=== PATIENT | female | born 1945 | race Caucasian/White ===

== ENCOUNTER 2018-05-13 14:27 | Emergency (ER) | payer MEDICARE, SELFPAY ==
[~2018-05-13 14:27] MED LIST: Sodium Chloride 0.9% 100 ML BAG ONE
[2018-05-13] MEDS ORDERED: Magnesium Sulfate 2 GM/NS 0.9% 50 ML BAG ONE (14:45)
[2018-05-13] MEDS ORDERED: Dexamethasone 10 MG/ML VIAL ONE (14:45)
--- NOTE | 2018-05-13 15:00 | RAD ---
FRONTAL RADIOGRAPH CHEST: Date: 05-13-18 Comparison: 12-23-11 History: Dyspnea. FINDINGS: Lungs are hyperinflated with increased linear interstitial density noted bilaterally. Pulmonary granu layne noted laterally on the right. No pneumothorax, pleural fluid, lobar consolidation or alveolar ed yolie. IMPRESSION: Interstitial prominence and pulmonary hyperinflation. No lobar consolidation or alveolar edema. POS: [facility]
[2018-05-13 15:13] LABS: #Basophils 0.1 thou/uL (0.0-0.2); #Eosinphils 0.1 thou/uL (0.0-0.7); #Lymphocytes 1.3 thou/uL (1.20-3.40); #Monocytes 0.8 thou/uL (0.11-0.59); #Neutrophils 6.6 thou/uL (1.40-6.50); %Basophils 1.2 % (0.0-1.0); %Eosinophils 0.9 % (0.0-10.0); %Lymphocytes 14.2 % (21.0-51.0); %Monocytes 8.9 % (0.0-10.0); %Neutrophils 74.9 % (42.0-75.0); Hemoglobin 12.8 g/dL (12.0-16.0); Mean Corpuscular HGB CONC 31.1 g/dL (32.0-36.0); Mean Corpuscular Hemoglobin 25.1 pg (27.0-31.0); Mean Corpuscular Volume 80.6 fL (78.0-98.0); Mean Platelet Volume 9.9 fL (7.4-10.4); Platelet Count 318 thou/uL (130-400); RBC Distribution Width 12.8 % (11.5-14.5); Red Blood Cell (RBC) Count 5.12 mill/uL (4.20-5.40); White Blood Cell (WBC) Count 8.8 thou/uL (4.8-10.8)
[2018-05-13 15:17] LABS: Anion Gap 17 mmol/L (10-20); BUN (Urea Nitrogen) 11 mg/dL (9.8-20.1); Calc. Creatinine Clearance 0 mL/min (70-130); Calcium 10.3 mg/dL (7.8-10.44); Carbon Dioxide 28 mmol/L (23-31); Chloride 103 mmol/L (98-107); Estimated GFR-MDRD 72; Glucose 119 mg/dL (83-110); Potassium 3.6 mmol/L (3.5-5.1); Sodium 144 mmol/L (136-145)
== END 2018-05-13 16:17 | disposition home or self-care (01) ==
LOC: MADERS 14:27
DX: J44.1 Chronic obstructive pulmonary disease with (acute) exacerbation (principal); Z87.891 Personal history of nicotine dependence
CPT/HCPCS: 71045; 80048; 83880; 85025; 94760; 96365; 96375; J1100; J3475; J7050; J7620

== ENCOUNTER 2020-05-19 20:13 | Emergency (ER) | payer MEDICARE ==
[~2020-05-19 20:13] MED LIST changes: +Sodium Chloride 0.9% 1,000 ML BAG ONE; -Sodium Chloride 0.9% 100 ML BAG ONE
--- NOTE | 2020-05-19 20:57 | RAD ---
Chest AP view INDICATION: Cough COMPARISON: May 13, 2018 FINDINGS: Lungs: The lungs remain hyperexpanded but without focal infiltrative opacity. There are calcified gr anuloma within the right lung which are stable. Cardiac silhouette: The cardiomediastinal silhouette appears within normal limits. Pulmonary vasculature: Normal Pleural spaces: No pleural effusion or pneumothorax is demonstrated. Upper abdomen: No abnormality seen. Osseous structures: No acute osseous abnormality. Additional findings: None. IMPRESSION: No acute cardiopulmonary abnormality.
[2020-05-19 21:13] LABS: Mean Corpuscular Hemoglobin 25.6 pg (27.0-31.0); Mean Corpuscular Volume 85.3 fL (78.0-98.0); Mean Platelet Volume 9.5 fL (7.4-10.4); Platelet Count 350 thou/uL (130-400); RBC Distribution Width 12.6 % (11.5-14.5); Red Blood Cell (RBC) Count 4.68 mill/uL (4.20-5.40); White Blood Cell (WBC) Count 13.3 thou/uL (4.8-10.8)
[2020-05-19] MEDS ORDERED: Thiamine HCl 200 MG/2 ML VIAL ONE (21:21)
[2020-05-19 21:26] LABS: ALT (SGPT) 51 U/L (8-55); AST (SGOT) 56 U/L (5-34); Albumin 3.9 g/dL (3.4-4.8); Alkaline Phosphatase 80 U/L (40-110); Anion Gap 24 mmol/L (10-20); BUN (Urea Nitrogen) 32 mg/dL (9.8-20.1); Bilirubin, Total 0.3 mg/dL (0.2-1.2); Calc. Creatinine Clearance 0 mL/min (70-130); Calcium 10.3 mg/dL (7.8-10.44); Carbon Dioxide 19 mmol/L (23-31); Chloride 106 mmol/L (98-107); Estimated GFR-MDRD 58; Globulin 2.5 g/dL (2.4-3.5); Glucose 118 mg/dL (83-110); Magnesium 2.2 mg/dL (1.6-2.6); Potassium 4.5 mmol/L (3.5-5.1); Protein, Total 6.4 g/dL (6.0-8.3); Sodium 144 mmol/L (136-145)
[2020-05-19 21:29] LABS: #Basophils 0.1 thou/uL (0.0-0.2); #Eosinphils 0.2 thou/uL (0.0-0.7); #Lymphocytes 0.6 thou/uL (1.20-3.40); #Monocytes 1.1 thou/uL (0.11-0.59); #Neutrophils 11.3 thou/uL (1.40-6.50); %Basophils 1.1 % (0.0-1.0); %Eosinophils 1.2 % (0.0-10.0); %Lymphocytes 4.2 % (21.0-51.0); %Monocytes 8.4 % (0.0-10.0); %Neutrophils 85.1 % (42.0-75.0); Hypochromia SLIGHT = 6-15 cells (100X) (0-5/hpf); MDiff Complete? YES; Platelet Morphology Comment Appears Adequate; Poikilocytosis SLIGHT = 6-15 cells (100X) (0-5/hpf)
== END 2020-05-19 22:12 | disposition left against medical advice (07) ==
LOC: MADERS 20:13
DX: I95.9 Hypotension, unspecified (principal); L89.102 Pressure ulcer of unspecified part of back, stage 2; I10 Essential (primary) hypertension; J44.9 Chronic obstructive pulmonary disease, unspecified; Z79.899 Other long term (current) drug therapy; Z87.891 Personal history of nicotine dependence
CPT/HCPCS: 71045; 80053; 83735; 83880; 84484; 85025; 93005; 96361; 96374; J3411; J7050

== ENCOUNTER 2020-05-23 15:18 | Inpatient (IN) | payer MEDICARE ==
[2020-05-23] MEDS ORDERED: Ondansetron ODT 4 MG TAB PO PRN (18:17)
[2020-05-23] MEDS: Cephalexin 500 MG CAP PO SCH (20:38)
[2020-05-23] MEDS: hydrALAZINE 25 MG TAB PO SCH (20:39)
[2020-05-23] MEDS: Mirtazapine 15 MG TAB PO SCH (20:40)
[2020-05-23] MEDS: Ventolin HFA Inhaler 60 PUFF INHALER INH PRN (22:15)
[2020-05-24 05:42] LABS: #Basophils 0.2 thou/uL (0.0-0.2); #Eosinphils 0.2 thou/uL (0.0-0.7); #Monocytes 0.8 thou/uL (0.11-0.59); #Neutrophils 4.7 thou/uL (1.40-6.50); %Basophils 2.5 % (0.0-1.0); %Eosinophils 2.9 % (0.0-10.0); %Lymphocytes 14.6 % (21.0-51.0); %Monocytes 12.1 % (0.0-10.0); %Neutrophils 67.9 % (42.0-75.0); Mean Corpuscular HGB CONC 29.7 g/dL (32.0-36.0); Mean Corpuscular Hemoglobin 25.1 pg (27.0-31.0); Mean Corpuscular Volume 84.7 fL (78.0-98.0); Mean Platelet Volume 9.2 fL (7.4-10.4); Platelet Count 324 thou/uL (130-400); RBC Distribution Width 12.2 % (11.5-14.5); Red Blood Cell (RBC) Count 4.37 mill/uL (4.20-5.40); White Blood Cell (WBC) Count 6.9 thou/uL (4.8-10.8)
[2020-05-24 05:58] LABS: ALT (SGPT) 30 U/L (8-55); AST (SGOT) 24 U/L (5-34); Alkaline Phosphatase 68 U/L (40-110); Anion Gap 15 mmol/L (10-20); BUN (Urea Nitrogen) 5 mg/dL (9.8-20.1); Bilirubin, Total 0.3 mg/dL (0.2-1.2); Calc. Creatinine Clearance 59 mL/min (70-130); Calcium 9.3 mg/dL (7.8-10.44); Carbon Dioxide 34 mmol/L (23-31); Chloride 100 mmol/L (98-107); Estimated GFR-MDRD Greater than 90; Globulin 2.3 g/dL (2.4-3.5); Glucose 91 mg/dL (83-110); Potassium 3.2 mmol/L (3.5-5.1); Protein, Total 5.3 g/dL (6.0-8.3); Sodium 146 mmol/L (136-145)
--- NOTE | 2020-05-24 07:25 | HP ---
Admitted to [facility] on 05/23/2020. CHIEF COMPLAINT: Weakness and not eating. HISTORY OF PRESENT ILLNESS: The patient is a 75-year-old white female, who has a history of COPD, for which she is on 2 L by nasal cannula. She also has a history of hypertension. She lives alone and had been independent of all her ADLs. The patient though had been growing increasingly weak and had also been eating less and less according to the patient, she had lost a lot of weight. The patient does not know how much weight she has lost, but she said she just essentially quit eating because she had no appetite. She grew increasingly weak and unable to walk and basically became bed-confined. The family referred her to the emergency room because of increased weakness where she was no longer getting up out of bed, loss of appetite, increased fatigue, and also she had developed a redness over the sacrum. The patient was admitted to [facility] from 05/20 to 05/23 with large area of redness to the sacrum with a small central ulceration. She was thought to have a cellulitis and initially was treated with Rocephin and vancomycin. Her blood cultures were negative. The redness seemed to diminish and improved and the antibiotics were stopped. She was started on mirtazapine to try to help stimulate her appetite and said she was eating a little better. She was improved, but was still left very weak and malnourished. She was sent to [facility] for continued treatment of the wound on the sacrum, for PT and OT and also an effort to try to help continue to improve her nutritional status. The patient was seen in her room soon after admission and she said that she had just gotten weak where she could not get up, around or take care of herself. She said she has lost a lot of weight because she just did not have any appetite. Right now, she says she is also eating a little better. Patient's primary care physician had been Dr. Eason, but she has not seen her in some time. PAST MEDICAL HISTORY: Hospitalized at [facility] from 05/20 to for malnutrition, increased weakness such that she was bed confined and unable to take care of herself and stage I and II ulceration over the sacrum with surrounding cellulitis, COPD, hypertension. The patient is a 4, para 4. PRESENT MEDICATIONS: Amlodipine 10 mg daily, DuoNeb by nebulizer every 4 hours as needed, Lovenox 40 mg subcu daily, Zofran ODT 4 mg every 6 hours as needed, mirtazapine 7.5 mg at bedtime, guaifenesin DM one tab every 12 hours as needed, hydralazine 100 mg b.i.d. ALLERGIES: NO KNOWN ALLERGIES. REVIEW OF SYSTEMS: CONSTITUTIONAL: The patient does not think she has had any fever. The patient said she has lost a lot of weight, but does not know how much. VISUAL: Patient says she has no trouble with her vision. EARS, NOSE, AND THROAT: No complaints. PULMONARY: Patient said her breathing is doing fine. She thinks she is at her baseline. She uses nebulizers which helps with her breathing. CARDIOVASCULAR: No chest pain. GASTROINTESTINAL: The patient has had no nausea, no vomiting, no change in her bowel habits. The patient said she though has not had an appetite, but recently it has gotten a little better since her hospital stay. GENITOURINARY: The patient said she is having no burning. Said she usually has good control of her urine. NEUROLOGIC: The patient said that she does not have any problem with headache. She has had generalized weakness, has been nonfocal. DERMATOME: The patient says she has had a little sore on her bottom. HABITS: Alcohol, none. Tobacco, the patient used to smoke, but has been off cigarettes for some years. SOCIAL HISTORY: The patient lives alone. She does have family that assist her when needed and recently had a woman hired to assist her, but in spite of this, her condition had gone down necessitating the hospitalization. PHYSICAL EXAMINATION: GENERAL: Shows a very pleasant 75-year-old white female, who looks much older than her stated age. The patient is alert and talkative and answers questions appropriately. She appears cachectic. VITAL SIGNS: Her weight is 89 pounds. Her temperature is 98.3, pulse 116, respirations 18, O2 saturation 95% on 4 L, blood pressure 108/61. Her height is 5 feet 3 inches. SKIN: Dry and scaly, but she is not in any acute distress. HEENT: Head, normocephalic and atraumatic. Eyes, pupils are equal, round, and reactive. Sclerae nonicteric. Ears, TMs are clear. Nose, normal. Mouth and throat, the patient is edentulous except for a front mandibular incisor. NECK: Carotids are equal and strong. No bruits. Thyroid not enlarged. LUNGS: The patient has poor breath sounds, did not hear any wheeze or rhonchi. HEART: Has a rapid regular rhythm. ABDOMEN: Scaphoid with no organomegaly. No areas of tenderness. MUSCULOSKELETAL: The sacral area has a sacral Mepilex on that was removed. There is some bright redness in the sacral region and a central area of stage II decubitus that is less than 1 cm. EXTREMITIES: No edema. NEUROLOGIC: The patient is alert, oriented to place and person, situation. She has generalized weakness that is nonfocal. IMPRESSION: 1. Severe generalized weakness. a. Progressive to where she was essentially bed confined and unable to take care of herself. 2. Weight loss. a. Secondary to anorexia, etiology not known. b. A little improved since starting on the mirtazapine. 3. Chronic obstructive pulmonary disease. a. Complicated by chronic hypoxic respiratory failure requiring continuous supplemental O2. 4. Stage II decubitus over the sacrum. 5. Recent cellulitis of the sacral area that is improved, but not resolved. 6. Hypertension. 7. Edentulous. 8. Hypophosphatemia, for which she has received phosphorus supplementation. 9. Hospitalized at [facility] from 05/20 to 05/23/20 for weight loss with malnutrition, weakness such that she was unable to take care of herself and stage II sacral decubitus with cellulitis. PLAN: While in the hospital at [place], she did undergo a COVID-19 nasal swab which showed that the COVID was not detected. She is doing better. She still is red in the sacral area. For this, we will continue her on antibiotic orally and we will also use clotrimazole cream in the event there is any yeast associated with this and we will continue the Mepilex sacral dressing. PT and OT will work with the patient in effort to try to increase her general strength and functional capabilities. We will continue the mirtazapine in an effort to improve her nutritional status. Continue the supplemental O2. Continue dietary supplements and the soft diet with ground meats. We will reduce her Lovenox to 30 mg. [facility] ID: [id number] [facility]
[2020-05-24] MEDS: hydrALAZINE 25 MG TAB PO SCH ×2 (08:34→20:02)
[2020-05-24] MEDS: Amlodipine 5 MG TAB PO SCH (08:35)
[2020-05-24] MEDS: Enoxaparin Sodium 30 MG/0.3 ML SYRINGE SC SCH (08:36)
[2020-05-24] MEDS: Cephalexin 500 MG CAP PO SCH ×2 (08:36→20:02)
[2020-05-24] MEDS: Clotrimazole 1% Cream 15 GM TUBE TOP SCH (09:07)
[2020-05-24] MEDS: Potassium Chloride 10 MEQ TAB PO SCH ×2 (09:07→16:31)
--- NOTE | 2020-05-24 10:28 | PRG ---
DATE OF SERVICE: 05/24/2020 SUBJECTIVE: The patient said she did pretty good last night. She feels good this morning. She had asked if she could have a fan, she usually sleeps with one at home. OBJECTIVE: GENERAL: The patient is sitting up in bed, is talkative, appears comfortable, in no distress. VITAL SIGNS: Show a temperature 98.4, pulse 84, blood pressure 136/64, O2 saturation 93% on 4 L. LUNGS: Poor breath sounds which are chronic with her. Could not hear any wheeze, rhonchi. No rales. HEART: Regular rate. LABORATORY DATA: Her lab shows an H and H of 11 and 37.0, white cell count 6900 with 68% segs, 15% lymphocytes and a platelet count of 324. Sodium 146, potassium 3.2, BUN 5, creatinine 0.5, albumin 3.0. ASSESSMENT: 1. Severe generalized weakness. a. Progressed to where she was essentially bed confined and unable to walk or take care of herself. b. Improved, physical therapy beginning to work with her as of 05/24/2020. 2. Weight loss. a. Secondary to anorexia, etiology not known. b. Improved as of 05/24. 3. Chronic obstructive pulmonary disease. a. Complicated by chronic hypoxic respiratory failure requiring continuous supplemental O2. 4. Stage II decubitus over the sacrum. 5. Recent cellulitis of the sacral area that has improved but not yet resolved. 6. Hypertension. 7. Edentulous. 8. Hypophosphatemia for which she has received phosphorus supplementation prior to admission. 9. Hospitalized at [facility] from 05/20/2020 to 05/23/2020 for weight loss with malnutrition, weakness such that she was unable to take care of herself, has stage II decubitus of the sacrum with cellulitis. PLAN: We will continue present care. Continue present wound care. We will place the patient on supplemental potassium, and PT and OT will work with her. Job ID: [id number] [facility]
[2020-05-24] MEDS: Guaifenesin DM 100-10/5 ML UDCUP PO PRN (19:59)
[2020-05-24] MEDS: Mirtazapine 15 MG TAB PO SCH (20:02)
[2020-05-25] MEDS: Amlodipine 5 MG TAB PO SCH (07:55)
[2020-05-25] MEDS: Cephalexin 500 MG CAP PO SCH ×2 (07:56→21:45)
[2020-05-25] MEDS: hydrALAZINE 25 MG TAB PO SCH ×2 (07:56→21:45)
[2020-05-25] MEDS: Potassium Chloride 10 MEQ TAB PO SCH ×2 (07:57→16:40)
[2020-05-25] MEDS: Enoxaparin Sodium 30 MG/0.3 ML SYRINGE SC SCH (07:57)
[2020-05-25] MEDS: Clotrimazole 1% Cream 15 GM TUBE TOP SCH (08:52)
--- NOTE | 2020-05-25 12:49 | PRG ---
DATE OF SERVICE: 05/25/2020 SUBJECTIVE: The patient said she had a good night. She got a fan in her room. She is used to using this at home and this has helped her. She is working with Physical Therapy. She is set up in a chair and she is able to take a couple of steps in her room with therapy. OBJECTIVE: GENERAL: The patient is lying in her bed. She looks very comfortable, in no distress. VITAL SIGNS: Her temperature is 97.7, pulse 97, respirations 20, O2 saturation 100% on 4 L, and blood pressure 137/76. LUNGS: Clear. HEART: Regular rate. MUSCULOSKELETAL: Sacral area looks better. The wound is clean. The area of redness is just pink now and much smaller. ASSESSMENT: 1. Severe generalized weakness. a. Progressed to where she was essentially bed confined and unable to walk or take care of herself. b. Improved. The patient is now able to sit up in a chair and has taken 2 steps with physical therapy as of 05/25. 2. Weight loss. a. Secondary to anorexia, etiology not known. b. Improved as of 05/25. 3. Chronic obstructive pulmonary disease. a. Complicated by chronic hypoxic respiratory failure, requiring continuous supplemental O2. 4. Stage II decubitus over the sacrum, improved. 5. Cellulitis of the sacral region that is improving as of 05/25. 6. Hypertension. 7. Edentulous. 8. Hospitalized at [facility] from 05/20/2020 to 05/23/2020 for weight loss with malnutrition, weakness such that she was unable to take care of herself and stage II decubitus of the sacrum with cellulitis. PLAN: Overall, the patient is doing better. We will continue her present care. Continue PT and OT, and continue wound care. Job ID: [id number] [facility]
[2020-05-25] MEDS: Mirtazapine 15 MG TAB PO SCH (21:45)
[2020-05-26 06:24] LABS: Anion Gap 14 mmol/L (10-20); BUN (Urea Nitrogen) 6 mg/dL (9.8-20.1); Calc. Creatinine Clearance 60 mL/min (70-130); Calcium 9.5 mg/dL (7.8-10.44); Carbon Dioxide 33 mmol/L (23-31); Chloride 101 mmol/L (98-107); Estimated GFR-MDRD Greater than 90; Glucose 87 mg/dL (83-110); Potassium 4.3 mmol/L (3.5-5.1); Sodium 144 mmol/L (136-145)
[2020-05-26] MEDS: Amlodipine 5 MG TAB PO SCH (09:05)
[2020-05-26] MEDS: Cephalexin 500 MG CAP PO SCH ×2 (09:05→21:28)
[2020-05-26] MEDS: Potassium Chloride 10 MEQ TAB PO SCH (09:05)
[2020-05-26] MEDS: hydrALAZINE 25 MG TAB PO SCH ×2 (09:05→21:28)
[2020-05-26] MEDS: Clotrimazole 1% Cream 15 GM TUBE TOP SCH (09:06)
[2020-05-26] MEDS: Enoxaparin Sodium 30 MG/0.3 ML SYRINGE SC SCH (09:07)
[2020-05-26] MEDS: Polyethylene Glycol 3350 17 GM Packet PO SCH (09:07)
--- NOTE | 2020-05-26 14:22 | PRG ---
DATE OF SERVICE: 05/26/2020 SUBJECTIVE: The patient says she is feeling better today. She is up sitting in her chair. She said she is breathing good. Her bottom is not hurting her. She still has a very limited capability as far as any walking. So far, she has only just taken couple steps. OBJECTIVE: GENERAL: The patient is alert, appears comfortable, is very talkative. She is in no distress. VITAL SIGNS: Her temperature is 98.4, her pulse 101, respirations 20, O2 saturation 99%, and blood pressure 129/73. LUNGS: Poor breath sounds, which are chronic. I did not hear any wheeze on her today. Breath sounds are limited. There were no rales. HEART: Mild elevation of the rate to 101. EXTREMITIES: No edema. LABORATORY DATA: Sodium 144, potassium 4.3, BUN 6, and creatinine 0.73. ASSESSMENT: 1. Severe generalized weakness. a. Progressed to where she was essentially bed confined and unable to walk or take care of herself on admission. b. Improved. The patient is now able to sit in the chair and has been able to stand, but only take a couple steps with physical therapy as of 05/26. 2. Weight loss. a. Secondary to anorexia of unknown cause. b. Improved as a 05/26. 3. Chronic obstructive pulmonary disease, severe. a. Complicated by chronic hypoxic respiratory failure, requiring continuous supplemental O2. 4. Stage II decubitus over the sacrum, improving. 5. Cellulitis of the sacral region, that is improving. 6. Hypertension. 7. Edentulous. 8. Hospitalized at [facility] from 05/20/2020 to 05/23/2020 for weight loss with malnutrition, weakness, such that, she was unable to walk or take care of herself and stage II decubitus of the sacrum with cellulitis. PLAN: The patient is better. She is eating better. We will continue to encourage her to eat. Continue the wound care. Continue PT and OT. Family is working with her on post-discharge care. The patient will not be able to stay by herself. She will require help with all her ADLs with supervised living arrangement. [facility] ID: [id number] [facility]
[2020-05-26] MEDS: Ventolin HFA Inhaler 60 PUFF INHALER INH PRN ×2 (17:15→21:31)
[2020-05-26] MEDS: Mirtazapine 15 MG TAB PO SCH (21:28)
[2020-05-27] MEDS: Ventolin HFA Inhaler 60 PUFF INHALER INH PRN ×3 (05:56→14:56)
[2020-05-27] MEDS: Enoxaparin Sodium 30 MG/0.3 ML SYRINGE SC SCH (08:27)
[2020-05-27] MEDS: Clotrimazole 1% Cream 15 GM TUBE TOP SCH (08:29)
[2020-05-27] MEDS: Amlodipine 5 MG TAB PO SCH (09:31)
[2020-05-27] MEDS: Cephalexin 500 MG CAP PO SCH ×2 (09:32→21:45)
[2020-05-27] MEDS: Bisacodyl 10 MG SUPP PR PRN (09:32)
[2020-05-27] MEDS: Polyethylene Glycol 3350 17 GM Packet PO SCH (09:32)
[2020-05-27] MEDS: hydrALAZINE 25 MG TAB PO SCH ×2 (09:32→22:16)
[2020-05-27] MEDS ORDERED: Bisacodyl 10 MG SUPP PR PRN (11:25)
[2020-05-27] MEDS ORDERED: Mineral Oil ENEMA PR SCH (11:30)
[2020-05-27] MEDS ORDERED: Fleet Enema 133 ML BOT PR SCH (11:45)
[2020-05-27] MEDS: Mirtazapine 15 MG TAB PO SCH (22:15)
[2020-05-28] MEDS: Enoxaparin Sodium 30 MG/0.3 ML SYRINGE SC SCH (08:59)
[2020-05-28] MEDS: hydrALAZINE 25 MG TAB PO SCH ×2 (08:59→21:21)
[2020-05-28] MEDS: Amlodipine 5 MG TAB PO SCH (09:00)
[2020-05-28] MEDS: Cephalexin 500 MG CAP PO SCH ×2 (09:01→21:21)
[2020-05-28] MEDS: Clotrimazole 1% Cream 15 GM TUBE TOP SCH (09:01)
[2020-05-28] MEDS: Polyethylene Glycol 3350 17 GM Packet PO SCH (09:02)
--- NOTE | 2020-05-28 15:56 | PRG ---
DATE OF SERVICE: 05/28/2020 SUBJECTIVE: The patient says she is feeling good today. Yesterday she had not had a bowel movement for several days and nurse found that she had a hard impaction. She was given Fleet Enema and then stool required a digital disimpaction removing a large amount of hard stools. Afterwards, she was given an additional enema with passage of some additional hard stools. She had been placed on MiraLAX daily for the constipation. This morning, she says she is feeling better and had no complaint. OBJECTIVE: GENERAL: The patient is alert, appears in no distress. VITAL SIGNS: Her temperature is 98.1, pulse 95, respirations 18, O2 saturation 100% on 3 L, and blood pressure 108/61. LUNGS: Have poor breath sounds chronically. Did not hear any wheeze, rhonchi, or rales, probably secondary to the very poor breath sounds. HEART: Regular rate. EXTREMITIES: No edema. Sacral wound is improving. ASSESSMENT: 1. Severe generalized weakness. a. Progressed to where she was essentially bed confined, unable to walk or take care of herself on admission. b. Improved. The patient is now able to sit in a chair and has been able to stand and take a couple of steps with PT as of 05/28. 2. Weight loss. a. Secondary to anorexia of unknown cause. b. Improving as of 05/28. 3. Chronic obstructive pulmonary disease, severe. a. Complicated by chronic hypoxic respiratory failure requiring continuous supplemental O2. 4. Stage II decubitus over the sacrum, improving. 5. Cellulitis of the sacral region, improving. 6. Hypertension. 7. Edentulous. 8. Hospitalized at [facility] from 05/20/2020 to 05/23/2020 for weight loss with malnutrition, weakness, such that she was unable to walk or take care of herself and stage II decubitus of the sacrum with cellulitis. PLAN: The patient is doing better. We will continue present care. Continue PT and OT. The patient has been placed on MiraLAX regularly for the constipation that required a disimpaction yesterday. Job ID: [id number] [facility]
[2020-05-28] MEDS: Ventolin HFA Inhaler 60 PUFF INHALER INH PRN (17:43)
[2020-05-28] MEDS: Mirtazapine 15 MG TAB PO SCH (21:22)
[2020-05-29] MEDS: Amlodipine 5 MG TAB PO SCH (08:00)
[2020-05-29] MEDS: hydrALAZINE 25 MG TAB PO SCH ×2 (08:01→20:46)
[2020-05-29] MEDS: Cephalexin 500 MG CAP PO SCH ×2 (08:01→20:46)
[2020-05-29] MEDS: Enoxaparin Sodium 30 MG/0.3 ML SYRINGE SC SCH (08:02)
[2020-05-29] MEDS: Polyethylene Glycol 3350 17 GM Packet PO SCH (08:06)
--- NOTE | 2020-05-29 09:52 | PRG ---
DATE OF SERVICE: 05/29/2020 SUBJECTIVE: The patient says she is feeling good today. Her bowels are working well. OBJECTIVE: GENERAL: The patient is lying in bed on her left side. She is alert and talkative, appears comfortable and in no distress. VITAL SIGNS: Show a temperature of 99 at midnight and this morning is pending, pulse 97, respirations 16, O2 saturation 98% on 2 L, blood pressure 144/70. LUNGS: There are fair breath sounds. No wheeze, rhonchi. No rales. HEART: Regular rate. SKIN: In the sacral area, the redness has all resolved. Stage II decubitus continues to improve. ASSESSMENT: 1. Severe generalized weakness. a. Progressed to where she was essentially bed confined, unable to walk or take care of herself on admission. b. Improved. The patient is sitting up in a chair and taking just a couple of steps with PT. 2. Weight loss. a. Secondary to anorexia of unknown cause. Improving as of 05/29. 3. Chronic obstructive pulmonary disease, severe. a. Complicated by chronic hypoxic respiratory failure requiring continuous supplemental O2. 4. Stage II decubitus over the sacrum, healing as of 05/29. 5. Cellulitis of the sacral region, resolving as of 05/29. 6. Hypertension. 7. Edentulous. 8. Hospitalized at [place] from 05/20 through 05/23/20 for weight loss, malnutrition, weakness such that she was unable to walk or take care of herself and stage II decubitus of the sacrum with cellulitis. PLAN: The patient is eating better. Continue wound care. Continue PT and OT. [facility] ID: [id number] [facility]
[2020-05-29] MEDS: Clotrimazole 1% Cream 15 GM TUBE TOP SCH (11:00)
[2020-05-29] MEDS: Ondansetron ODT 4 MG TAB PO PRN (11:57)
[2020-05-29] MEDS: Ventolin HFA Inhaler 60 PUFF INHALER INH PRN (17:30)
[2020-05-29] MEDS: Mirtazapine 15 MG TAB PO SCH (20:48)
[2020-05-30] MEDS: Ventolin HFA Inhaler 60 PUFF INHALER INH PRN ×3 (07:30→20:06)
[2020-05-30] MEDS: Amlodipine 5 MG TAB PO SCH (08:34)
[2020-05-30] MEDS: hydrALAZINE 25 MG TAB PO SCH ×2 (08:35→20:20)
[2020-05-30] MEDS: Enoxaparin Sodium 30 MG/0.3 ML SYRINGE SC SCH (08:36)
[2020-05-30] MEDS: Polyethylene Glycol 3350 17 GM Packet PO SCH (08:36)
[2020-05-30] MEDS: Clotrimazole 1% Cream 15 GM TUBE TOP SCH (08:38)
--- NOTE | 2020-05-30 11:11 | PRG ---
DATE OF SERVICE: 05/30/2020 SUBJECTIVE: The patient said that she is feeling good today. Yesterday, she was nauseated and just did not want to work with Physical Therapy. OBJECTIVE: GENERAL: The patient is sitting up in bed. She is alert, appears very comfortable, and in no distress. VITAL SIGNS: Her temperature 97.1, pulse 86, respirations 20, O2 saturation 98 % on 3 L, blood pressure 106/57. LUNGS: Clear. Breath sounds are a little better, but still overall are poor. HEART: Regular rate. EXTREMITIES: No edema. ASSESSMENT: 1. Severe generalized weakness. a. Progressed to where she was essentially bed confined, unable to walk or take care of herself on admission. b. Improved. The patient is sitting up in a chair and really has not been able to take more than a couple of steps. Yesterday, did not want to participate with PT because she felt sick. Today, she is better as of 05/30. 2. Weight loss. a. Appetite improving, eating better as of 05/30. 3. Chronic obstructive pulmonary disease, severe. a. Complicated by chronic hypoxic respiratory failure, requiring continuous supplemental O2. 4. Stage II decubitus over the sacrum that is healing as of 05/30. 5. Cellulitis of the sacral region resolving as of 05/30. PLAN: Continue present care. We will discontinue the cephalexin. Encouraged her to participate with PT and OT. The cephalexin was scheduled for 10 days, but the cellulitis is all resolving, and this may be contributing to her nausea. Job ID: [id number] [facility]
[2020-05-30] MEDS: Mirtazapine 15 MG TAB PO SCH (20:20)
[2020-05-30] MEDS: Acetaminophen 325 MG TAB PO PRN (20:24)
[2020-05-31] MEDS: Ventolin HFA Inhaler 60 PUFF INHALER INH PRN ×2 (02:36→05:27)
[2020-05-31] MEDS: Enoxaparin Sodium 30 MG/0.3 ML SYRINGE SC SCH (07:58)
[2020-05-31] MEDS: Amlodipine 5 MG TAB PO SCH (07:59)
[2020-05-31] MEDS: hydrALAZINE 25 MG TAB PO SCH ×2 (08:00→21:08)
[2020-05-31] MEDS: Polyethylene Glycol 3350 17 GM Packet PO SCH (08:01)
[2020-05-31] MEDS: Clotrimazole 1% Cream 15 GM TUBE TOP SCH (10:45)
[2020-05-31] MEDS: Mirtazapine 15 MG TAB PO SCH (21:07)
[2020-06-01] MEDS: Ventolin HFA Inhaler 60 PUFF INHALER INH PRN ×4 (01:53→18:55)
[2020-06-01] MEDS: Enoxaparin Sodium 30 MG/0.3 ML SYRINGE SC SCH (09:10)
[2020-06-01] MEDS: hydrALAZINE 25 MG TAB PO SCH ×2 (09:10→21:38)
[2020-06-01] MEDS: Amlodipine 5 MG TAB PO SCH (09:11)
[2020-06-01] MEDS: Polyethylene Glycol 3350 17 GM Packet PO SCH (09:11)
[2020-06-01] MEDS: Clotrimazole 1% Cream 15 GM TUBE TOP SCH (09:12)
[2020-06-01] MEDS: Acetaminophen 325 MG TAB PO PRN (10:46)
--- NOTE | 2020-06-01 14:58 | PRG ---
DATE OF SERVICE: 06/01/2020 SUBJECTIVE: The patient said she is feeling better. She said she did get up in a chair yesterday and she said she did work a little with Physical Therapy. The patient is requiring still help with transferring, she is not able to walk. OBJECTIVE: GENERAL: The patient is lying in bed. She looks very comfortable, in no distress. VITAL SINGS: Temperature, she is afebrile. Pulse 78, respirations are 18, O2 sats 92% on 3 L, and blood pressure 122/77. LUNGS: Fair breath sounds. No wheeze or rhonchi. HEART: Regular rate. SKIN: Bandage was changed early this morning by nursing staff and said the wound is better and almost healed. ASSESSMENT: 1. Severe generalized weakness. a. Progressed to where she was essentially bed confined, unable to walk or take care of herself on admission. b. Eating a little better, will sit up in a chair, but really is not working with Physical Therapy or able to ambulate as of 06/01. 2. Weight loss. a. Appetite improving as of 06/01. 3. Chronic obstructive pulmonary disease, severe. a. Complicated by chronic hypoxic respiratory failure requiring continuous supplemental O2 for stage II decubitus over the sacrum that is healing as of 06/01. 4. Cellulitis of the sacrum, healed as of 06/01. PLAN: Continue efforts with PT and OT. Continue to encourage her to eat. General Surgery Physician Assistant is working with her. Anticipate that she probably will require usp placement. Job ID: [id number] [facility]
[2020-06-01] MEDS: Mirtazapine 15 MG TAB PO SCH (21:39)
[2020-06-02] MEDS: Ventolin HFA Inhaler 60 PUFF INHALER INH PRN ×2 (08:17→15:48)
[2020-06-02] MEDS: Amlodipine 5 MG TAB PO SCH (08:19)
[2020-06-02] MEDS: Enoxaparin Sodium 30 MG/0.3 ML SYRINGE SC SCH (08:19)
[2020-06-02] MEDS: Polyethylene Glycol 3350 17 GM Packet PO SCH (08:20)
[2020-06-02] MEDS: hydrALAZINE 25 MG TAB PO SCH ×2 (08:20→20:21)
[2020-06-02] MEDS: Clotrimazole 1% Cream 15 GM TUBE TOP SCH (08:23)
[2020-06-02] MEDS: Guaifenesin DM 100-10/5 ML UDCUP PO PRN (10:51)
--- NOTE | 2020-06-02 13:09 | PRG ---
DATE OF SERVICE: 06/02/2020 SUBJECTIVE: The patient says she feels good today. She said she was able to sit up in a chair yesterday, but she is not attempting to walk. She is eating a little better. OBJECTIVE: GENERAL: The patient is lying in bed with the head elevated. She looks very comfortable. VITAL SIGNS: Her weight is up to 92 pounds from admission weight of 89. Her temperature is 98.5, pulse 61, respirations 22, O2 saturation 94% on 2 L, blood pressure 117/64. LUNGS: The patient has fair breath sounds with no wheeze or rhonchi. Periodic productive sounding cough. HEART: Regular rate. EXTREMITIES: No edema. Wound on the sacral area healing. ASSESSMENT: 1. Severe generalized weakness. a. Progressed to where she was essentially bed confined and unable to walk or take care of herself on admission. b. Eating better, sitting up in a chair, but not able to walk as of 06/02. 2. Weight loss. a. Appetite improving. Weight up to 92 as of 06/02. 3. Chronic obstructive pulmonary disease, severe. a. Complicated by chronic hypoxic respiratory failure requiring continuous supplemental O2. 4. Stage II decubitus over the sacrum. a. Healing as of 06/02. 5. Cellulitis of the sacrum, had healed as of 06/01. PLAN: Continue present care. Continue efforts with PT and OT. Stock Patch Sawyer , Zoraida Phelan, will be working with the family to help plan discharge care of patient, anticipate that she will need to enter a [place] [facility] [place]. Job ID: [id number] [facility]
[2020-06-02] MEDS: Mirtazapine 15 MG TAB PO SCH (20:22)
[2020-06-03] MEDS: Ventolin HFA Inhaler 60 PUFF INHALER INH PRN ×3 (04:10→20:35)
[2020-06-03] MEDS: Enoxaparin Sodium 30 MG/0.3 ML SYRINGE SC SCH (08:54)
[2020-06-03] MEDS: Amlodipine 5 MG TAB PO SCH (08:54)
[2020-06-03] MEDS: hydrALAZINE 25 MG TAB PO SCH ×2 (08:55→20:36)
[2020-06-03] MEDS: Polyethylene Glycol 3350 17 GM Packet PO SCH (08:55)
[2020-06-03] MEDS: Clotrimazole 1% Cream 15 GM TUBE TOP SCH (08:55)
[2020-06-03] MEDS: Mirtazapine 15 MG TAB PO SCH (20:33)
[2020-06-04] MEDS: Ventolin HFA Inhaler 60 PUFF INHALER INH PRN ×4 (01:26→23:43)
[2020-06-04] MEDS: Polyethylene Glycol 3350 17 GM Packet PO SCH (09:32)
[2020-06-04] MEDS: Enoxaparin Sodium 30 MG/0.3 ML SYRINGE SC SCH (09:33)
[2020-06-04] MEDS: Amlodipine 5 MG TAB PO SCH (09:33)
[2020-06-04] MEDS: hydrALAZINE 25 MG TAB PO SCH ×2 (09:34→20:08)
[2020-06-04] MEDS: Clotrimazole 1% Cream 15 GM TUBE TOP SCH (09:34)
[2020-06-04] MEDS: Guaifenesin DM 100-10/5 ML UDCUP PO PRN (16:44)
[2020-06-04] MEDS: Mirtazapine 15 MG TAB PO SCH (20:08)
[2020-06-05] MEDS: Ventolin HFA Inhaler 60 PUFF INHALER INH PRN ×3 (05:31→19:16)
[2020-06-05] MEDS: Enoxaparin Sodium 30 MG/0.3 ML SYRINGE SC SCH (08:31)
[2020-06-05] MEDS: Polyethylene Glycol 3350 17 GM Packet PO SCH (08:31)
[2020-06-05] MEDS: hydrALAZINE 25 MG TAB PO SCH ×2 (08:32→21:35)
[2020-06-05] MEDS: Amlodipine 5 MG TAB PO SCH (08:32)
[2020-06-05] MEDS: Clotrimazole 1% Cream 15 GM TUBE TOP SCH (08:42)
--- NOTE | 2020-06-05 12:40 | PRG ---
DATE OF SERVICE: 06/05/2020 SUBJECTIVE: The patient says she did not rest well last night. She is eating a little better. She is not hurting. OBJECTIVE: VITAL SIGNS: Show temperature 98.4, pulse 78, respirations 20, O2 saturation 99% on 3 L, blood pressure 117/71. LUNGS: Have fair breath sounds. I did not hear any wheeze or rhonchi. HEART: Regular rate. EXTREMITIES: No edema. MUSCULOSKELETAL: Wound on the sacral area as reviewed from the picture show that the redness is all gone and wound is almost completely healed. The area is just a little pink. ASSESSMENT: 1. Severe generalized weakness. a. Progressed to where she was essentially bed confined and unable to walk or take care of herself on admission. b. Eating better, sitting up in a chair, but not able to walk as of 06/05. 2. Weight loss. a. Appetite improving. Weight had been up to 92 pounds. The patient is due for another weigh. 3. Chronic obstructive pulmonary disease, severe. a. Complicated by chronic hypoxic respiratory failure requiring continuous supplemental O2. 4. Stage II decubitus over the sacrum almost totally healed as 06/05. 5. Cellulitis of the sacrum, healed as of 06/01. PLAN: Continue present care. Continue efforts with PT and OT. Continue to encourage her to eat. We will visit with her daughter Mercy for posthospital care. Job ID: [id number] [facility]
[2020-06-05] MEDS: Ondansetron ODT 4 MG TAB PO PRN (17:23)
[2020-06-05] MEDS: Mirtazapine 15 MG TAB PO SCH (21:35)
[2020-06-06] MEDS: Ventolin HFA Inhaler 60 PUFF INHALER INH PRN ×2 (01:06→22:18)
[2020-06-06] MEDS: Amlodipine 5 MG TAB PO SCH (08:12)
[2020-06-06] MEDS: Enoxaparin Sodium 30 MG/0.3 ML SYRINGE SC SCH (08:12)
[2020-06-06] MEDS: hydrALAZINE 25 MG TAB PO SCH ×2 (08:13→21:45)
[2020-06-06] MEDS: Polyethylene Glycol 3350 17 GM Packet PO SCH (08:14)
--- NOTE | 2020-06-06 11:42 | PRG ---
DATE OF SERVICE: 06/06/2020 SUBJECTIVE: The patient says she is feeling pretty good this morning. She is sitting up into a chair. Physical therapist is with her and they are planning on trying to help see if she can stand and hopefully progress her to walking, heretofore and she has been very resistant to this, but today, she seems to be trying. I had visited with the patient's daughter, Choco, yesterday and Supervisor [employer], Zoraida Phelan, was to visit with Choco also to try to help with post hospital planning. OBJECTIVE: GENERAL: The patient is alert, talkative, and appears in no acute distress. VITAL SIGNS: Her temperature 97.3, pulse 87, respirations 16, O2 saturation 97 % on 2 L, blood pressure 104/66. LUNGS: Fair breath sounds. There is no wheeze or rhonchi. HEART: Regular rate. ASSESSMENT: 1. Severe generalized weakness. a. Progressed to where she was essentially bed confined, unable to walk or take care of herself on admission. b. Eating better. Sitting up in a chair today as of 06/06. 2. Weight loss. a. Appetite improving. b. Weight is stable at 92 pounds. Weight 89 on admission. 3. Chronic obstructive pulmonary disease, severe. a. Complicated by chronic hypoxic respiratory failure, requiring continuous supplemental oxygen. 4. Stage II decubitus over the sacrum, healed. 5. Cellulitis of the sacrum, healed. PLAN: Continue present care and encourage the patient to work with Physical Therapy, and try to walk. With visit with the daughter, she plans on encouraging her to do the same. Social Service will assist the family in post hospital care planning. Job ID: [id number] MTDD
[2020-06-06] MEDS: Ondansetron ODT 4 MG TAB PO PRN (11:48)
[2020-06-06] MEDS: Clotrimazole 1% Cream 15 GM TUBE TOP SCH (13:19)
[2020-06-06] MEDS: Mirtazapine 15 MG TAB PO SCH (21:44)
[2020-06-06] MEDS ORDERED: Ventolin HFA Inhaler 60 PUFF INHALER ONE (22:22)
[2020-06-07] MEDS: Ventolin HFA Inhaler 60 PUFF INHALER INH PRN ×3 (06:21→21:26)
[2020-06-07] MEDS: Enoxaparin Sodium 30 MG/0.3 ML SYRINGE SC SCH (08:29)
[2020-06-07] MEDS: Polyethylene Glycol 3350 17 GM Packet PO SCH (08:29)
[2020-06-07] MEDS: hydrALAZINE 25 MG TAB PO SCH ×2 (08:29→21:25)
[2020-06-07] MEDS: Amlodipine 5 MG TAB PO SCH (08:30)
[2020-06-07] MEDS: Clotrimazole 1% Cream 15 GM TUBE TOP SCH (08:52)
--- NOTE | 2020-06-07 14:25 | PRG ---
DATE OF SERVICE: 06/07/2020 SUBJECTIVE: The patient is already up and sitting up in a chair this morning. She said she is feeling pretty good. She denies any chest pain or any shortness of breath. She is working a little better with physical therapy. She did walk 3 feet with a rolling walker and minimum assistance. She requires minimum to moderate assistance with any transfers. OBJECTIVE: GENERAL: The patient is sitting up in a chair, alert, talkative, appears comfortable, in no distress. VITAL SIGNS: Her temp is 97.4, pulse 101, respirations 16, O2 saturation 96% on 2.5 L, blood pressure 110/58. Her weight is stable at 92 pounds. LUNGS: Clear with fair breath sounds. HEART: Regular rate. EXTREMITIES: No edema. ASSESSMENT: 1. Severe generalized weakness. a. Progressed to where she was essentially bed confined, unable to walk or take care of herself on admission. b. Improved, sitting up in a chair and now has been able to walk with a walker 3 feet as of 06/07. 2. Weight loss. a. Appetite improving. b. Weight is stable at 92 pounds, 89 on admission. 3. Chronic obstructive pulmonary disease, severe. a. Complicated by chronic hypoxic respiratory failure, requiring continuous supplemental O2. 4. Stage II decubitus over the sacrum, healed. 5. Cellulitis of the sacrum, healed. PLAN: Encourage the patient continue to work with Physical Therapy and Occupational Therapy. Encourage her to continue eating. Job ID: [id number] MTDD
[2020-06-07] MEDS: Mirtazapine 15 MG TAB PO SCH (21:29)
[2020-06-08] MEDS: Acetaminophen 325 MG TAB PO PRN (02:56)
[2020-06-08] MEDS: Ventolin HFA Inhaler 60 PUFF INHALER INH PRN (07:49)
[2020-06-08] MEDS: Amlodipine 5 MG TAB PO SCH (08:57)
[2020-06-08] MEDS: hydrALAZINE 25 MG TAB PO SCH ×2 (09:00→21:50)
[2020-06-08] MEDS: Enoxaparin Sodium 30 MG/0.3 ML SYRINGE SC SCH (09:00)
[2020-06-08] MEDS: Clotrimazole 1% Cream 15 GM TUBE TOP SCH (09:02)
[2020-06-08] MEDS: Polyethylene Glycol 3350 17 GM Packet PO SCH ×2 (09:02→09:05)
--- NOTE | 2020-06-08 14:25 | PRG ---
DATE OF SERVICE: 06/08/2020 SUBJECTIVE: The patient said that she is feeling pretty good today. She has already been up with physical therapy. She is sitting down on her chair. She said she did walk a little bit in her room yesterday. This morning, with therapy, she has walked twice 8 feet with a rolling walker and minimum assistance. She does require sgbqvfm-ic-qngmyrbm assistance with transfers. OBJECTIVE: GENERAL: The patient is sitting up in a chair, looks happy, smiling. VITAL SIGNS: Temperature 97.4, pulse 101, blood pressure 133/63, respirations 24, and O2 saturation 96% on 2-1/2 L. LUNGS: Clear with fair breath sounds. HEART: Regular rate. EXTREMITIES: No edema. SACRUM: The wound is all healed. There is no redness. She does wear a Mepilex dressing there as protection. ASSESSMENT: 1. Severe generalized weakness. a. Progressed to where she was essentially bed confined, unable to walk or take care of herself on admission. b. Improved. She is now sitting up in a chair and tolerates this well. She is walking up to 8 feet at least twice today with a walker and transferring with xlmbdlp-dc-povmcpcs assistance as of 06/08. 2. Weight loss. a. Appetite improving. b. Admission weight 89, now up to 93.9 as of 06/08. 3. Chronic obstructive pulmonary disease, severe. a. Complicated by chronic hypoxic respiratory failure, requiring continuous supplemental O2. 4. Stage II decubitus over the sacrum, healed. 5. Cellulitis of the sacrum, healed. PLAN: Continue present care. Encouraged her to continue eating. Encouraged her to continue working with PT and OT. Job ID: [id number] MTDD
[2020-06-08] MEDS: Mirtazapine 15 MG TAB PO SCH (21:50)
[2020-06-09] MEDS: Ventolin HFA Inhaler 60 PUFF INHALER INH PRN ×3 (07:26→21:50)
[2020-06-09] MEDS: hydrALAZINE 25 MG TAB PO SCH ×2 (08:18→21:44)
[2020-06-09] MEDS: Enoxaparin Sodium 30 MG/0.3 ML SYRINGE SC SCH (08:18)
[2020-06-09] MEDS: Clotrimazole 1% Cream 15 GM TUBE TOP SCH (08:19)
[2020-06-09] MEDS: Amlodipine 5 MG TAB PO SCH (08:19)
[2020-06-09] MEDS: Polyethylene Glycol 3350 17 GM Packet PO SCH (08:20)
--- NOTE | 2020-06-09 16:54 | PRG ---
DATE OF SERVICE: 06/09/2020 SUBJECTIVE: The patient said she is doing fine. She had no complaint. She said she is eating a little better. She is walking up to 8 feet with a rolling walker, requires minimum to moderate assistance with transfers. OBJECTIVE: GENERAL: The patient is sitting up in bed, is alert, talkative, appears comfortable, and in no distress. VITAL SIGNS: Show a temperature of 98.4, pulse 91, respirations 22, O2 saturation 93% on 2 L, blood pressure 118/61. LUNGS: Clear. HEART: Breath sounds are moderate. Heart regular rate. EXTREMITIES: No edema. ASSESSMENT: 1. Severe generalized weakness. a. Progressed to where she was essentially bed confined, unable to walk or take care of herself on admission. b. Improved. Sitting up in a chair, tolerating this well. Walking up to 8 feet with a rolling walker and transferring with gdsywnm-ew-thdakxyj assistance as of 06/09. c. Weight loss. I. Appetite improving. II. Admission weight 89. Present weight 93.9 as of 06/09. 2. Chronic obstructive pulmonary disease, severe. a. Complicated by chronic hypoxic respiratory failure requiring continuous supplemental O2. b. Stable as of 06/09. 3. Stage II decubitus over the sacrum, healed. 4. Cellulitis of the sacrum, healed. PLAN: Continue PT and OT. Continue to encourage the patient to eat. Job ID: [id number] MTDD
[2020-06-09] MEDS: Mirtazapine 15 MG TAB PO SCH (21:49)
[2020-06-10] MEDS: Ventolin HFA Inhaler 60 PUFF INHALER INH PRN ×3 (02:28→21:50)
[2020-06-10] MEDS: Amlodipine 5 MG TAB PO SCH (08:07)
[2020-06-10] MEDS: hydrALAZINE 25 MG TAB PO SCH ×2 (08:08→21:50)
[2020-06-10] MEDS: Polyethylene Glycol 3350 17 GM Packet PO SCH (08:09)
[2020-06-10] MEDS: Enoxaparin Sodium 30 MG/0.3 ML SYRINGE SC SCH (08:09)
[2020-06-10] MEDS: Ondansetron ODT 4 MG TAB PO PRN (10:13)
[2020-06-10] MEDS: Clotrimazole 1% Cream 15 GM TUBE TOP SCH (11:25)
[2020-06-10] MEDS: Mirtazapine 15 MG TAB PO SCH (21:49)
[2020-06-11] MEDS: Enoxaparin Sodium 30 MG/0.3 ML SYRINGE SC SCH (07:57)
[2020-06-11] MEDS: hydrALAZINE 25 MG TAB PO SCH ×2 (07:58→21:04)
[2020-06-11] MEDS: Amlodipine 5 MG TAB PO SCH (07:58)
[2020-06-11] MEDS: Ondansetron ODT 4 MG TAB PO PRN ×2 (10:28→21:53)
[2020-06-11] MEDS: Clotrimazole 1% Cream 15 GM TUBE TOP SCH (11:12)
[2020-06-11] MEDS: Polyethylene Glycol 3350 17 GM Packet PO SCH (11:12)
[2020-06-11] MEDS: Mirtazapine 15 MG TAB PO SCH (21:17)
[2020-06-11] MEDS: Acetaminophen 325 MG TAB PO PRN (21:17)
[2020-06-11] MEDS: Ventolin HFA Inhaler 60 PUFF INHALER INH PRN (21:18)
[2020-06-12] MEDS: Ventolin HFA Inhaler 60 PUFF INHALER INH PRN ×4 (03:00→21:12)
[2020-06-12] MEDS: Polyethylene Glycol 3350 17 GM Packet PO SCH (09:28)
[2020-06-12] MEDS: Amlodipine 5 MG TAB PO SCH (09:29)
[2020-06-12] MEDS: hydrALAZINE 25 MG TAB PO SCH ×2 (09:29→21:10)
[2020-06-12] MEDS: Enoxaparin Sodium 30 MG/0.3 ML SYRINGE SC SCH (09:30)
[2020-06-12] MEDS: Clotrimazole 1% Cream 15 GM TUBE TOP SCH (09:31)
--- NOTE | 2020-06-12 13:52 | PRG ---
DATE OF SERVICE: 06/12/2020 SUBJECTIVE: The patient states she is doing all right this morning. She is already up out of bed, sitting up in her bedside chair. OBJECTIVE: VITAL SIGNS: Shows a temperature 98.6, pulse 85, respirations 22, O2 saturation 99% on 2 L, and blood pressure 129/78. LUNGS: Fair breath sounds. No wheezes or rhonchi. HEART: Regular rate. EXTREMITIES: No edema. ASSESSMENT: 1. Severe generalized weakness. a. Progressed to where she was essentially bed confined, unable to walk or take care of herself on admission. b. Improved. Sitting up in a chair and tolerates this well. Walking up to 8 feet with a rolling walker and transferring with minimum to moderate assistance as of 06/12. 2. Weight loss. a. Appetite improved. b. Weight up from admission of 89 to 94. 3. Chronic obstructive pulmonary disease, severe. a. Complicated by chronic hypoxic respiratory failure requiring continuous supplemental O2. b. Stable as of 06/12. 4. Stage II decubitus over the sacrum, healed. 5. Cellulitis of the sacrum, healed. PLAN: Continue PT and OT. The patient would like to go home, but will require someone to stay with her to assist her with all her ADLs and instrumental ADLs. Job ID: [id number] MTDD
[2020-06-12] MEDS: Mirtazapine 15 MG TAB PO SCH (21:12)
[2020-06-13] MEDS: Ventolin HFA Inhaler 60 PUFF INHALER INH PRN ×4 (05:32→21:06)
[2020-06-13] MEDS: Amlodipine 5 MG TAB PO SCH (08:03)
[2020-06-13] MEDS: Enoxaparin Sodium 30 MG/0.3 ML SYRINGE SC SCH (08:04)
[2020-06-13] MEDS: Polyethylene Glycol 3350 17 GM Packet PO SCH (08:04)
[2020-06-13] MEDS: hydrALAZINE 25 MG TAB PO SCH ×2 (08:04→19:32)
[2020-06-13] MEDS: Clotrimazole 1% Cream 15 GM TUBE TOP SCH (08:04)
[2020-06-13] MEDS: Ondansetron ODT 4 MG TAB PO PRN (11:39)
[2020-06-13] MEDS: Mirtazapine 15 MG TAB PO SCH (21:06)
[2020-06-14] MEDS: Ventolin HFA Inhaler 60 PUFF INHALER INH PRN ×3 (02:19→11:58)
[2020-06-14] MEDS: Amlodipine 5 MG TAB PO SCH (07:31)
[2020-06-14] MEDS: Enoxaparin Sodium 30 MG/0.3 ML SYRINGE SC SCH (07:32)
[2020-06-14] MEDS: Clotrimazole 1% Cream 15 GM TUBE TOP SCH (07:32)
[2020-06-14] MEDS: hydrALAZINE 25 MG TAB PO SCH ×2 (07:32→21:33)
[2020-06-14] MEDS: Polyethylene Glycol 3350 17 GM Packet PO SCH (07:33)
--- NOTE | 2020-06-14 09:56 | PRG ---
DATE OF SERVICE: 06/13/2020 SUBJECTIVE: The patient says she is feeling good today. She has been eating better. Today, she has walked up to 14 feet with physical therapy with a rolling walker and moderate assistance. She is transferring with xnbqfddd-rt-lcdpxw assistance. OBJECTIVE: GENERAL: The patient is sitting up in bed, alert, appears comfortable, and in no distress. VITAL SIGNS: Show a temperature of 98, pulse 78, respirations 22, O2 saturation 100% on 3 L, and blood pressure 132/67. LUNGS: Moderate breath sounds. There is no wheeze or rhonchi present. HEART: Regular rate. ASSESSMENT: 1. Severe generalized weakness. a. Progressed to where she was essentially bed confined, unable to walk or take care of herself on admission. b. Improved. Sitting up in a chair and tolerates well. Walking up to 14 feet with a rolling walker. Transferring with mjvsxcc-nt-wamztvom assistance as of 06/13. 2. Weight loss. a. Appetite improved. b. Weight has increased from 89 on admission to 94 pounds. 3. Chronic obstructive pulmonary disease, severe. a. Complicated by chronic hypoxic respiratory failure requiring continuous supplemental oxygen. b. Stable as of 06/13. 4. Stage II decubitus over the sacrum, healed. 5. Cellulitis of the sacrum, healed. PLAN: Continue present care. Continue PT. Job ID: [id number]
--- NOTE | 2020-06-14 11:58 | PRG ---
DATE OF SERVICE: 06/14/2020 SUBJECTIVE: The patient said she is doing all right this morning. She had no complaint. OBJECTIVE: GENERAL: The patient is sitting up in a chair. She is eating her breakfast. VITAL SIGNS: Her temperature is 97.9, pulse 75, respirations 16, O2 saturation is 99% on 2 L, blood pressure 118/61. Weight is 94 pounds. LUNGS: Clear with fair breath sounds. HEART: Regular rate. EXTREMITIES: No edema. ASSESSMENT: 1. Severe generalized weakness. a. Progressed to where she was essentially bed confined, unable to walk or take care of herself on admission. b. Improved. Sit up in a chair and tolerates well. Walking up to 8 feet with a walker and transferring with minimal to moderate assistance as of 06/14. 2. Weight loss. a. Appetite improved. b. Weight up from admission of 89 to 94. 3. Chronic obstructive pulmonary disease, severe. a. Complicated by chronic hypoxic respiratory failure requiring continuous supplemental O2. b. Stable as of 06/12. PLAN: Continue present care. Continue PT and OT. Job ID: [id number]
[2020-06-14] MEDS: Mirtazapine 15 MG TAB PO SCH (21:33)
[2020-06-15] MEDS: Ventolin HFA Inhaler 60 PUFF INHALER INH PRN ×4 (01:32→15:53)
[2020-06-15] MEDS: Clotrimazole 1% Cream 15 GM TUBE TOP SCH (07:37)
[2020-06-15] MEDS: Polyethylene Glycol 3350 17 GM Packet PO SCH (08:07)
[2020-06-15] MEDS: Amlodipine 5 MG TAB PO SCH (08:07)
[2020-06-15] MEDS: hydrALAZINE 25 MG TAB PO SCH ×2 (08:07→20:04)
[2020-06-15] MEDS: Enoxaparin Sodium 30 MG/0.3 ML SYRINGE SC SCH (08:11)
[2020-06-15] MEDS: Mirtazapine 15 MG TAB PO SCH (20:04)
[2020-06-16] MEDS: Ventolin HFA Inhaler 60 PUFF INHALER INH PRN ×2 (03:28→08:08)
[2020-06-16] MEDS: Amlodipine 5 MG TAB PO SCH (08:02)
[2020-06-16] MEDS: hydrALAZINE 25 MG TAB PO SCH ×2 (08:03→20:27)
[2020-06-16] MEDS: Enoxaparin Sodium 30 MG/0.3 ML SYRINGE SC SCH (08:04)
[2020-06-16] MEDS: Polyethylene Glycol 3350 17 GM Packet PO SCH (10:51)
[2020-06-16] MEDS: Ondansetron ODT 4 MG TAB PO PRN (14:22)
[2020-06-16] MEDS: Clotrimazole 1% Cream 15 GM TUBE TOP SCH (14:23)
[2020-06-16] MEDS: Mirtazapine 15 MG TAB PO SCH (20:28)
[2020-06-17] MEDS ORDERED: Ventolin HFA Inhaler 60 PUFF INHALER ONE (03:22)
[2020-06-17] MEDS: Ventolin HFA Inhaler 60 PUFF INHALER INH PRN ×4 (03:28→17:10)
--- NOTE | 2020-06-17 05:36 | PRG ---
DATE OF SERVICE: 06/16/2020 SUBJECTIVE: The patient said that she is feeling good. She had no complaint today. She continues to work with physical therapy. She is eating better. OBJECTIVE: GENERAL: The patient is in bed, alert, talkative, appears comfortable, in no distress. VITAL SIGNS: Her temp 98.2, pulse 87, respirations 24, O2 saturation 97% on 3 L , blood pressure 122/64. LUNGS: Has moderate breath sounds that are clear. HEART: Regular rate. EXTREMITIES: No edema. ASSESSMENT: 1. Severe generalized weakness. a. Progressed to where she was essentially bed confined, unable to walk or take care of herself on admission. b. Improving. Sitting up in a chair, tolerates well. Walking short distances with a walker. Transferring with minimal to moderate assistance as of . 2. Weight loss. a. Appetite improved. b. Weight up from admission of 89 to 94. 3. Severe chronic obstructive pulmonary disease. a. Complicated by chronic hypoxic respiratory failure requiring continuous supplemental O2. b. Stable as of 06/16. PLAN: Continue present care. Continue PT and OT. Eventually upon her discharge, she will need someone who will be staying with her and assisting her with her ADLs and instrumental ADLs. Job ID: [id number] [facility]
[2020-06-17] MEDS: hydrALAZINE 25 MG TAB PO SCH ×2 (09:18→20:24)
[2020-06-17] MEDS: Amlodipine 5 MG TAB PO SCH (09:19)
[2020-06-17] MEDS: Enoxaparin Sodium 30 MG/0.3 ML SYRINGE SC SCH (09:19)
[2020-06-17] MEDS: Polyethylene Glycol 3350 17 GM Packet PO SCH (09:19)
[2020-06-17] MEDS: Clotrimazole 1% Cream 15 GM TUBE TOP SCH (09:20)
[2020-06-17] MEDS: Mirtazapine 15 MG TAB PO SCH (20:25)
[2020-06-18] MEDS: Ventolin HFA Inhaler 60 PUFF INHALER INH PRN ×3 (00:25→15:48)
[2020-06-18] MEDS: Acetaminophen 325 MG TAB PO PRN (00:31)
[2020-06-18] MEDS: Amlodipine 5 MG TAB PO SCH (09:21)
[2020-06-18] MEDS: hydrALAZINE 25 MG TAB PO SCH ×2 (09:22→20:28)
[2020-06-18] MEDS: Clotrimazole 1% Cream 15 GM TUBE TOP SCH (09:23)
[2020-06-18] MEDS: Enoxaparin Sodium 30 MG/0.3 ML SYRINGE SC SCH (09:23)
[2020-06-18] MEDS: Polyethylene Glycol 3350 17 GM Packet PO SCH (09:23)
[2020-06-18] MEDS: Bisacodyl 10 MG SUPP PR PRN (14:35)
[2020-06-18] MEDS: Mirtazapine 15 MG TAB PO SCH (20:29)
[2020-06-19] MEDS: Ventolin HFA Inhaler 60 PUFF INHALER INH PRN ×3 (04:09→13:30)
--- NOTE | 2020-06-19 05:32 | PRG ---
DATE OF SERVICE: 06/18/2020 SUBJECTIVE: The patient said she is doing fine. She slept good. Yesterday she sat up in a chair for a long time. The patient says she is eating better. OBJECTIVE: GENERAL: The patient is sitting up in bed, alert, talkative, appears comfortable, and in no distress. VITAL SIGNS: Shows temperature of 97.7, pulse 81, respirations 22, O2 saturation 99% on 3 L, blood pressure 137/63. LUNGS: Clear with moderate breath sounds. HEART: Regular rate. EXTREMITIES: No edema. ASSESSMENT: 1. Severe generalized weakness. a. Progressed to where she was essentially bed confined and unable to walk or take care of herself on admission. b. Improving. Sitting up in a chair, which she tolerates well. Walking short distances with a walker. Transferring with minimal to moderate assistance as of 06/18. 2. Weight loss. a. Appetite improved. b. Weight on admission 89, weight as of 06/16, 94. 3. Severe chronic obstructive pulmonary disease. a. Complicated by chronic hypoxic respiratory failure, requiring continuous supplemental O2. b. Stable as of 06/18. PLAN: Continue present care. Continue PT and OT. Job ID: [id number] MTDD
[2020-06-19] MEDS: Amlodipine 5 MG TAB PO SCH (08:13)
[2020-06-19] MEDS: Enoxaparin Sodium 30 MG/0.3 ML SYRINGE SC SCH (08:14)
[2020-06-19] MEDS: Polyethylene Glycol 3350 17 GM Packet PO SCH (08:16)
[2020-06-19] MEDS: hydrALAZINE 25 MG TAB PO SCH ×2 (08:16→20:25)
[2020-06-19] MEDS: Clotrimazole 1% Cream 15 GM TUBE TOP SCH (09:43)
--- NOTE | 2020-06-19 10:00 | PRG ---
DATE OF SERVICE: 06/19/2020 SUBJECTIVE: The patient is up, sitting in a chair, preparing for breakfast this morning. OBJECTIVE: GENERAL: She is alert, appears comfortable, in no distress. VITAL SIGNS: Show temperature 98.2, pulse 88, respirations 20, O2 saturation 99 % on 3 L, blood pressure 128/54. LUNGS: Clear with moderate breath sounds. HEART: Regular rate. EXTREMITIES: No edema. The patient has only been walking about 8 feet at the end of the week with Physical Therapy and requiring minimal to moderate assistance with transfers. ASSESSMENT: 1. Severe generalized weakness. a. Progressed to where she was essentially bed confined and unable to walk or take care of herself on admission. b. Improving. Tolerates sitting up in a chair. Walks short distances up to 5 to 8 feet with a walker. Transferring requires minimum to moderate assistance as of 06/19. 2. Weight loss. a. Appetite improved. b. Weight improved. Weight on admission 89, most recent weight 94 pounds. 3. Severe obstructive pulmonary disease. a. Complicated by chronic hypoxic respiratory failure, requiring continuous supplemental O2. b. Has created a marked decline in her functional capabilities. c. Stable as of 06/19. PLAN: Continue efforts at PT and OT. I am not sure how much more she will improve. The COPD certainly is a limiting factor with her improvement. Family apparently is looking at posthospital arrangements. The patient will need assistance upon her discharge. Job ID: [id number] MTDD
[2020-06-19] MEDS: Mirtazapine 15 MG TAB PO SCH (20:26)
[2020-06-20] MEDS: Albuterol 200 PUFF (6.7GM INHALER) INH PRN (03:32)
[2020-06-20] MEDS: Amlodipine 5 MG TAB PO SCH (08:46)
[2020-06-20] MEDS: Polyethylene Glycol 3350 17 GM Packet PO SCH (08:46)
[2020-06-20] MEDS: Enoxaparin Sodium 30 MG/0.3 ML SYRINGE SC SCH (08:46)
[2020-06-20] MEDS: hydrALAZINE 25 MG TAB PO SCH ×2 (08:46→20:49)
[2020-06-20] MEDS: Clotrimazole 1% Cream 15 GM TUBE TOP SCH (08:46)
[2020-06-20] MEDS: Ventolin HFA Inhaler 60 PUFF INHALER INH PRN ×2 (09:59→17:58)
[2020-06-20] MEDS: Mirtazapine 15 MG TAB PO SCH (20:50)
[2020-06-21] MEDS: Ventolin HFA Inhaler 60 PUFF INHALER INH PRN ×2 (03:53→13:40)
[2020-06-21] MEDS: Clotrimazole 1% Cream 15 GM TUBE TOP SCH (07:20)
[2020-06-21] MEDS: Polyethylene Glycol 3350 17 GM Packet PO SCH (07:21)
[2020-06-21] MEDS: hydrALAZINE 25 MG TAB PO SCH ×2 (07:50→20:13)
[2020-06-21] MEDS: Enoxaparin Sodium 30 MG/0.3 ML SYRINGE SC SCH (07:50)
[2020-06-21] MEDS: Amlodipine 5 MG TAB PO SCH (07:50)
[2020-06-21] MEDS: Mometasone/Formoterol 60 PUFF AER INH SCH ×2 (09:55→18:08)
--- NOTE | 2020-06-21 13:11 | PRG ---
DATE OF SERVICE: 06/21/2020 SUBJECTIVE: The patient is sitting up in a chair. She has been around with physical therapy. She is still walking only very short distances, usually up to about 12 feet with a rolling walker and assistance. She is requiring some minimum assistance with transfers. OBJECTIVE: GENERAL: The patient is sitting up in a chair, looks a little short of breath, but looks her usual. She appears in no acute distress. VITAL SIGNS: Temperature of 97.3, pulse 90, respirations 18, O2 saturation 99% on 3 L, blood pressure 147/64. LUNGS: Moderate breath sounds. No wheeze or rhonchi. HEART: Regular rate. ASSESSMENT: 1. Severe generalized weakness. a. Progressed to where she was essentially bed confined, then unable to walk or take care herself on admission. b. Improving. Tolerating sitting up in a chair. Walking up to 12 feet with a walker and assistance. Transferring with minimal assistance as of . 2. Weight loss. a. Appetite, much improved. b. Weight has improved from an admission weight of 89 to 94. 3. Severe chronic obstructive pulmonary disease. a. Complicated by chronic hypoxic respiratory failure requiring continuous supplemental O2, has caused marked decline in her functional capabilities. b. Stable as of 06/21. PLAN: Continue PT and OT. Family working on arranging adequate care for her upon discharge. The patient will not be able to stay by herself or take care of herself. We will try the patient on a long-acting bronchodilator with steroid inhaler. Job ID: [id number] MTDD
[2020-06-21] MEDS ORDERED: Mometasone/Formoterol 60 PUFF AER INH SCH (19:00)
[2020-06-21] MEDS: Mirtazapine 15 MG TAB PO SCH (20:12)
[2020-06-22] MEDS: Mometasone/Formoterol 60 PUFF AER INH SCH ×2 (05:53→17:22)
[2020-06-22] MEDS: Amlodipine 5 MG TAB PO SCH (08:45)
[2020-06-22] MEDS: hydrALAZINE 25 MG TAB PO SCH ×2 (08:46→20:21)
[2020-06-22] MEDS: Polyethylene Glycol 3350 17 GM Packet PO SCH (08:46)
[2020-06-22] MEDS: Enoxaparin Sodium 30 MG/0.3 ML SYRINGE SC SCH (08:46)
[2020-06-22] MEDS: Clotrimazole 1% Cream 15 GM TUBE TOP SCH (08:47)
--- NOTE | 2020-06-22 09:14 | PRG ---
DATE OF SERVICE: 06/22/2020 SUBJECTIVE: The patient says she is feeling all right today. She has no complaint. OBJECTIVE: GENERAL: The patient is sitting up in her chair, eating her breakfast. She is alert, appears in no distress. She is wearing her oxygen and looks comfortable at rest. VITAL SIGNS: Temperature 97.3, pulse 84, respirations 18, O2 saturation 100% on 3 L, and blood pressure 144/66. LUNGS: Fair breath sounds. There is no wheeze, rhonchi or rales. HEART: Regular rate. EXTREMITIES: No edema. ASSESSMENT: 1. Severe generalized weakness. a. Progressed to where she was essentially bed confined, unable to walk or take care of herself on admission. b. Improving. Walking up to 12 feet with a walker and assistance. Transferring with minimal assistance as of 06/22. 2. Weight loss. a. Appetite continues to improve. b. Weight improved from admission, weight of 89 to 93. 3. Severe chronic obstructive pulmonary disease. a. Complicated by chronic hypoxic respiratory failure, requiring continuous supplemental O2. b. Has caused gradual decline in her functional capabilities. c. Stable as of 06/22. PLAN: Continue PT and OT. Family is trying to make arrangements where the patient will have someone with her to assist her. The patient cannot live by herself, needs someone to assist with her ADLs and all her instrumental ADLs. Job ID: [id number] [facility]
[2020-06-22] MEDS: Ventolin HFA Inhaler 60 PUFF INHALER INH PRN ×2 (09:30→13:31)
[2020-06-22] MEDS: Mirtazapine 15 MG TAB PO SCH (20:20)
[2020-06-23] MEDS: Albuterol 200 PUFF (6.7GM INHALER) INH PRN (01:04)
[2020-06-23] MEDS: Mometasone/Formoterol 60 PUFF AER INH SCH ×2 (05:59→17:37)
[2020-06-23] MEDS: Acetaminophen 325 MG TAB PO PRN ×3 (06:09→17:57)
[2020-06-23] MEDS: Ventolin HFA Inhaler 60 PUFF INHALER INH PRN ×2 (08:04→11:21)
[2020-06-23] MEDS: Enoxaparin Sodium 30 MG/0.3 ML SYRINGE SC SCH (08:04)
[2020-06-23] MEDS: Amlodipine 5 MG TAB PO SCH (08:04)
[2020-06-23] MEDS: Polyethylene Glycol 3350 17 GM Packet PO SCH (08:04)
[2020-06-23] MEDS: hydrALAZINE 25 MG TAB PO SCH ×2 (08:05→20:18)
[2020-06-23] MEDS: Clotrimazole 1% Cream 15 GM TUBE TOP SCH (08:05)
[2020-06-23] MEDS: Ondansetron ODT 4 MG TAB PO PRN (11:19)
--- NOTE | 2020-06-23 12:14 | PRG ---
DATE OF SERVICE: 06/23/2020 SUBJECTIVE: The patient said she is doing good. She ate a good breakfast. She said she has already been around physical therapy this morning. The patient is walking up to 12 to 15 feet with rolling walker and caregiver assist. She is transferring with hipevmp-ac-idlnyzro assistance. OBJECTIVE: GENERAL: The patient is sitting up in a chair having eaten her breakfast and cleaned her plate. She looks very mildly dyspneic at rest, which is usual for her. VITAL SIGNS: Her temp is 97.9, pulse 79, respirations 20, O2 saturation 100% on 3 L, and blood pressure 115/55. LUNGS: Fair breath sounds. No wheeze, rhonchi, or rales. HEART: Regular rate. EXTREMITIES: No edema. ASSESSMENT: 1. Severe generalized weakness. a. Progressed to where she was essentially bed confined, unable to walk or take care of herself on admission on 05/23/2020. b. Improving. Walking 12 to 15 feet with a walker and assistance. Transferring with bnyhwwj-oe-lkjcmgwx assistance as of 06/23. 2. Weight loss. a. Appetite much improved. b. Weight on admission 89, present weight 93 as of 06/22/2020. 3. Severe chronic obstructive pulmonary disease. a. Complicated by chronic hypoxic respiratory failure requiring continuous supplemental O2. b. Has caused gradual decline in her functional capabilities. c. Stable as of 06/23. PLAN: Continue present care. Continue PT and OT. Nursing staff making arrangements with home health to assist with her care once she is discharged and also to continue with in-home PT and OT. Also application been made for her again to have a provider. Family is working on trying to also assist with further care in the home. Job ID: [id number] MTDD
[2020-06-23] MEDS: Bisacodyl 10 MG SUPP PR PRN (12:42)
[2020-06-23] MEDS: Guaifenesin DM 100-10/5 ML UDCUP PO PRN (17:59)
[2020-06-23] MEDS: Mirtazapine 15 MG TAB PO SCH (20:17)
[2020-06-24] MEDS: Mometasone/Formoterol 60 PUFF AER INH SCH ×2 (05:53→18:02)
[2020-06-24] MEDS: Amlodipine 5 MG TAB PO SCH (08:08)
[2020-06-24] MEDS: hydrALAZINE 25 MG TAB PO SCH ×2 (08:09→20:15)
[2020-06-24] MEDS: Enoxaparin Sodium 30 MG/0.3 ML SYRINGE SC SCH (08:11)
[2020-06-24] MEDS: Polyethylene Glycol 3350 17 GM Packet PO SCH (08:12)
[2020-06-24] MEDS: Clotrimazole 1% Cream 15 GM TUBE TOP SCH (09:11)
[2020-06-24] MEDS: Ventolin HFA Inhaler 60 PUFF INHALER INH PRN (13:33)
[2020-06-24] MEDS: Acetaminophen 325 MG TAB PO PRN (18:27)
[2020-06-24] MEDS: Guaifenesin DM 100-10/5 ML UDCUP PO PRN (18:27)
[2020-06-24] MEDS: Mirtazapine 15 MG TAB PO SCH (20:16)
[2020-06-25] MEDS: Ventolin HFA Inhaler 60 PUFF INHALER INH PRN ×2 (00:53→12:58)
[2020-06-25] MEDS: Mometasone/Formoterol 60 PUFF AER INH SCH ×2 (05:42→17:16)
[2020-06-25] MEDS: Enoxaparin Sodium 30 MG/0.3 ML SYRINGE SC SCH (08:20)
[2020-06-25] MEDS: hydrALAZINE 25 MG TAB PO SCH ×2 (08:21→20:50)
[2020-06-25] MEDS: Amlodipine 5 MG TAB PO SCH (08:21)
[2020-06-25] MEDS: Polyethylene Glycol 3350 17 GM Packet PO SCH (08:22)
[2020-06-25] MEDS: Clotrimazole 1% Cream 15 GM TUBE TOP SCH (08:47)
[2020-06-25] MEDS: Acetaminophen 325 MG TAB PO PRN (17:59)
[2020-06-25] MEDS: Guaifenesin DM 100-10/5 ML UDCUP PO PRN (17:59)
[2020-06-25] MEDS: Mirtazapine 15 MG TAB PO SCH (20:51)
[2020-06-26] MEDS: Ventolin HFA Inhaler 60 PUFF INHALER INH PRN ×3 (02:06→12:00)
[2020-06-26] MEDS: Mometasone/Formoterol 60 PUFF AER INH SCH ×2 (05:16→17:48)
[2020-06-26] MEDS: hydrALAZINE 25 MG TAB PO SCH ×2 (09:07→20:33)
[2020-06-26] MEDS: Amlodipine 5 MG TAB PO SCH (09:07)
[2020-06-26] MEDS: Clotrimazole 1% Cream 15 GM TUBE TOP SCH (09:08)
[2020-06-26] MEDS: Polyethylene Glycol 3350 17 GM Packet PO SCH (09:08)
[2020-06-26] MEDS: Enoxaparin Sodium 30 MG/0.3 ML SYRINGE SC SCH (09:08)
--- NOTE | 2020-06-26 11:02 | PRG ---
DATE OF SERVICE: 06/26/2020 SUBJECTIVE: The patient says that she has already been to therapy this morning. She said she is walking with help short distance. OBJECTIVE: GENERAL: The patient is sitting up in a chair. She is alert, appears comfortable, and in no distress. VITAL SIGNS: Her temperature is 98.3 pulse 75, respirations 20, O2 saturation 99% on 2.5 L, and blood pressure 131/66. LUNGS: Fair breath sounds. No wheeze or rhonchi. No rales. HEART: Regular rate. EXTREMITIES: No edema. ASSESSMENT: 1. Severe generalized weakness. a. Progressed to where she was bed confined, unable to walk or care for herself on admission on 05/23/2020. b. Improving. Walking 12 to 15 feet with a walker and assistance. Transferring with minimal to moderate assistance as of 06/26. 2. Weight loss. a. Appetite, much improved. b. Weight on admission 89, weight 93 on 06/22. 3. Severe chronic obstructive pulmonary disease. a. Complicated by chronic hypoxic respiratory failure, requiring continuous supplemental O2. b. Has caused gradual decline in her functional capabilities. c. Stable as of 06/26. PLAN: Continue present care. Arrangements are being made for the patient to have home health in her home with primary care provider and family is working on trying to provide additional help for her, their hope for her is to allow her to come back into her home. The patient though will need the continual support with all her ADLs and instrumental ADLs. Job ID: [id number] MTDD
[2020-06-26] MEDS: Ondansetron ODT 4 MG TAB PO PRN (12:41)
[2020-06-26] MEDS: Guaifenesin DM 100-10/5 ML UDCUP PO PRN (13:34)
[2020-06-26] MEDS: Acetaminophen 325 MG TAB PO PRN (17:51)
[2020-06-26] MEDS: Mirtazapine 15 MG TAB PO SCH (20:34)
[2020-06-27] MEDS: Mometasone/Formoterol 60 PUFF AER INH SCH ×2 (05:08→17:28)
[2020-06-27] MEDS: Amlodipine 5 MG TAB PO SCH (07:53)
[2020-06-27] MEDS: Polyethylene Glycol 3350 17 GM Packet PO SCH (07:54)
[2020-06-27] MEDS: Clotrimazole 1% Cream 15 GM TUBE TOP SCH (07:54)
[2020-06-27] MEDS: Enoxaparin Sodium 30 MG/0.3 ML SYRINGE SC SCH (07:54)
[2020-06-27] MEDS: hydrALAZINE 25 MG TAB PO SCH ×2 (07:54→20:56)
[2020-06-27] MEDS: Ventolin HFA Inhaler 60 PUFF INHALER INH PRN ×3 (07:56→20:51)
[2020-06-27] MEDS: Ondansetron ODT 4 MG TAB PO PRN (11:21)
[2020-06-27] MEDS: Bisacodyl 10 MG SUPP PR PRN (13:25)
[2020-06-27] MEDS ORDERED: Senokot 8.6 MG TAB PO SCH (15:00)
[2020-06-27] MEDS: Mirtazapine 15 MG TAB PO SCH (20:51)
[2020-06-27] MEDS: Senokot 8.6 MG TAB PO SCH (20:51)
[2020-06-28] MEDS: Mometasone/Formoterol 60 PUFF AER INH SCH ×2 (05:57→18:10)
[2020-06-28] MEDS: hydrALAZINE 25 MG TAB PO SCH ×2 (08:10→20:26)
[2020-06-28] MEDS: Polyethylene Glycol 3350 17 GM Packet PO SCH (08:11)
[2020-06-28] MEDS: Enoxaparin Sodium 30 MG/0.3 ML SYRINGE SC SCH (08:11)
[2020-06-28] MEDS: Clotrimazole 1% Cream 15 GM TUBE TOP SCH (08:12)
[2020-06-28] MEDS: Amlodipine 5 MG TAB PO SCH (08:13)
[2020-06-28] MEDS: Ventolin HFA Inhaler 60 PUFF INHALER INH PRN (08:19)
[2020-06-28] MEDS: Senokot 8.6 MG TAB PO SCH ×2 (09:12→20:09)
[2020-06-28] MEDS: Ondansetron ODT 4 MG TAB PO PRN (13:00)
[2020-06-28] MEDS: Acetaminophen 325 MG TAB PO PRN (18:13)
[2020-06-28] MEDS: Mirtazapine 15 MG TAB PO SCH (20:09)
[2020-06-29] MEDS: Ventolin HFA Inhaler 60 PUFF INHALER INH PRN ×3 (00:10→11:57)
[2020-06-29] MEDS: Mometasone/Formoterol 60 PUFF AER INH SCH ×2 (05:43→17:56)
[2020-06-29] MEDS: Polyethylene Glycol 3350 17 GM Packet PO SCH (07:55)
[2020-06-29] MEDS: Senokot 8.6 MG TAB PO SCH (07:56)
[2020-06-29] MEDS: Amlodipine 5 MG TAB PO SCH (07:56)
[2020-06-29] MEDS: hydrALAZINE 25 MG TAB PO SCH ×2 (07:56→20:37)
[2020-06-29] MEDS: Enoxaparin Sodium 30 MG/0.3 ML SYRINGE SC SCH (07:57)
[2020-06-29] MEDS: Clotrimazole 1% Cream 15 GM TUBE TOP SCH (07:57)
[2020-06-29] MEDS: Ondansetron ODT 4 MG TAB PO PRN (08:53)
[2020-06-29] MEDS: Bisacodyl 10 MG SUPP PR PRN (08:53)
[2020-06-29] MEDS: Senokot S 8.6-50 MG TAB PO SCH ×2 (08:58→20:38)
--- NOTE | 2020-06-29 08:58 | PRG ---
DATE OF SERVICE: 06/29/2020 SUBJECTIVE: The patient says she is feeling good today. She said she is still having trouble with her bowels and needs something more to help them move easier. Her breathing is okay. She has been eating good. Physical Therapy says that she will walk up to 12 to 15 feet with her walker and assistance. She is able to transfer and get up out of bed and out of a chair with standby assistance and some minimum assistance. OBJECTIVE: GENERAL: The patient is sitting up in a chair. She is alert, appears comfortable, in no distress. VITAL SIGNS: Her temp is 97.5, pulse 84, respirations 18, O2 saturation 100% on 2 L, and blood pressure 121/67. Her weight has dropped to 90 pounds. LUNGS: Clear with fair breath sounds. HEART: Regular rate. ASSESSMENT: 1. Severe generalized weakness. a. Progressed to where she was bed confined, unable to walk or care for herself on admission on 05/23/2020. b. Improving. Walking 12 to 15 feet with a walker and assistance. Transferring with minimum to standby assistance as of 06/29. 2. Weight loss. a. Appetite much improved. b. Weight on admission 89, olimpia to 93 and now it is 90 as of 06/29. 3. Severe chronic obstructive pulmonary disease. a. Complicated by chronic hypoxic respiratory failure, requiring continuous supplemental O2. b. Has caused gradual decline in her ADLs, where she requires assistance with all her ADLs as of 06/29. c. Stable as of 06/29. PLAN: Continue present care. The patient may be approaching her maximum. We will continue to try. The patient will need on discharge someone to assist her with her ADLs and all her instrumental ADLs and should be in a supervised living arrangement. Job ID: [id number] MTDD
[2020-06-29] MEDS: Mirtazapine 15 MG TAB PO SCH (20:38)
[2020-06-30] MEDS: Albuterol 200 PUFF (6.7GM INHALER) INH PRN ×2 (02:16→10:59)
[2020-06-30] MEDS: Mometasone/Formoterol 60 PUFF AER INH SCH ×2 (05:52→17:38)
[2020-06-30] MEDS: Senokot S 8.6-50 MG TAB PO SCH ×2 (09:00→20:27)
[2020-06-30] MEDS: Amlodipine 5 MG TAB PO SCH (09:00)
[2020-06-30] MEDS: hydrALAZINE 25 MG TAB PO SCH ×2 (09:00→20:25)
[2020-06-30] MEDS: Polyethylene Glycol 3350 17 GM Packet PO SCH (09:01)
[2020-06-30] MEDS: Enoxaparin Sodium 30 MG/0.3 ML SYRINGE SC SCH (09:01)
[2020-06-30] MEDS: Clotrimazole 1% Cream 15 GM TUBE TOP SCH (09:01)
--- NOTE | 2020-06-30 13:46 | PRG ---
DATE OF SERVICE: 06/30/2020 SUBJECTIVE: The patient says she is feeling good today. She just came back from Physical Therapy and she says she will walk up to 12 to 15 feet, but then will not go any further. She uses a walker and has assistance. Her transfers require some mild assistance. OBJECTIVE: GENERAL: The patient is sitting up in a chair, always mildly dyspneic at rest, has her oxygen in place. Her temperature is 97.6, pulse 86, respirations 20, O2 saturation 93% on 3 L, and blood pressure 117/58. LUNGS: Have fair breath sounds. No wheeze. No rhonchi. No rales. HEART: Regular rate. EXTREMITIES: No edema. ASSESSMENT: 1. Severe generalized weakness. a. Progress to where she was bed confined, unable to walk or care for herself at the time of her admission on 05/23/2020. b. Improved, but this is gradually plateauing where she is walking 12 to 15 feet at most with a walker and assistance. Transferring with minimal assistance. 2. Weight loss. a. Appetite much improved. b. Weight on admission 89 olimpia to 93, last weight on 06/29 was 90. 3. Severe chronic obstructive pulmonary disease. a. Complicated by chronic hypoxic respiratory failure, requiring continuous supplemental O2. b. Has caused gradual decline in her ADLs, where she requires assistance with her ADLs as of 06/30. c. Stable as of 06/30. PLAN: Continue present care. The patient may be reaching a plateau. We will continue her efforts with PT and OT. Upon discharge, the patient will need a supervised living arrangement. The patient would not be safe to stay by herself. She needs someone with her to assist with her ADLs and her instrumental ADLs. Job ID: [id number] [facility]
[2020-06-30] MEDS: Acetaminophen 325 MG TAB PO PRN (17:45)
[2020-06-30] MEDS: Mirtazapine 15 MG TAB PO SCH (20:27)
[2020-07-01] MEDS: Mometasone/Formoterol 60 PUFF AER INH SCH ×2 (05:46→17:33)
[2020-07-01] MEDS: Enoxaparin Sodium 30 MG/0.3 ML SYRINGE SC SCH (08:50)
[2020-07-01] MEDS: hydrALAZINE 25 MG TAB PO SCH ×2 (08:50→20:06)
[2020-07-01] MEDS: Senokot S 8.6-50 MG TAB PO SCH ×2 (08:50→20:06)
[2020-07-01] MEDS: Polyethylene Glycol 3350 17 GM Packet PO SCH (08:51)
[2020-07-01] MEDS: Clotrimazole 1% Cream 15 GM TUBE TOP SCH (08:51)
[2020-07-01] MEDS: Amlodipine 5 MG TAB PO SCH (08:51)
[2020-07-01] MEDS: Albuterol 200 PUFF (6.7GM INHALER) INH PRN (09:00)
[2020-07-01] MEDS: Ondansetron ODT 4 MG TAB PO PRN ×2 (13:23→20:06)
[2020-07-01] MEDS: Acetaminophen 325 MG TAB PO PRN (17:36)
[2020-07-01] MEDS: Mirtazapine 15 MG TAB PO SCH (20:06)
[2020-07-02] MEDS: Mometasone/Formoterol 60 PUFF AER INH SCH ×2 (05:50→17:32)
[2020-07-02] MEDS: Amlodipine 5 MG TAB PO SCH (09:01)
[2020-07-02] MEDS: hydrALAZINE 25 MG TAB PO SCH ×2 (09:01→20:31)
[2020-07-02] MEDS: Senokot S 8.6-50 MG TAB PO SCH ×2 (09:01→20:28)
[2020-07-02] MEDS: Polyethylene Glycol 3350 17 GM Packet PO SCH (09:01)
[2020-07-02] MEDS: Clotrimazole 1% Cream 15 GM TUBE TOP SCH (09:02)
[2020-07-02] MEDS: Enoxaparin Sodium 30 MG/0.3 ML SYRINGE SC SCH (09:02)
[2020-07-02] MEDS: Albuterol 200 PUFF (6.7GM INHALER) INH PRN ×3 (09:07→20:32)
[2020-07-02] MEDS: Bisacodyl 10 MG SUPP PR PRN (13:09)
[2020-07-02] MEDS: Acetaminophen 325 MG TAB PO PRN (20:27)
[2020-07-02] MEDS: Mirtazapine 15 MG TAB PO SCH (20:28)
[2020-07-03] MEDS: Mometasone/Formoterol 60 PUFF AER INH SCH ×2 (05:58→17:05)
[2020-07-03] MEDS: Amlodipine 5 MG TAB PO SCH (08:09)
[2020-07-03] MEDS: Polyethylene Glycol 3350 17 GM Packet PO SCH (08:09)
[2020-07-03] MEDS: Enoxaparin Sodium 30 MG/0.3 ML SYRINGE SC SCH (08:09)
[2020-07-03] MEDS: Clotrimazole 1% Cream 15 GM TUBE TOP SCH (08:10)
[2020-07-03] MEDS: hydrALAZINE 25 MG TAB PO SCH ×2 (08:10→20:38)
[2020-07-03] MEDS: Senokot S 8.6-50 MG TAB PO SCH ×2 (08:10→20:38)
[2020-07-03] MEDS: Albuterol 200 PUFF (6.7GM INHALER) INH PRN ×2 (10:15→15:26)
--- NOTE | 2020-07-03 10:20 | PRG ---
DATE OF SERVICE: 07/03/2020 SUBJECTIVE: The patient said that she is feeling good this morning. She did visit with her daughter. Apparently, arrangements are being made to tend her at home. Her daughter plans on staying with her and then she would like Hospice to come in and assist with her care. These arrangements will be made, and tentatively, will discharge on 07/07. OBJECTIVE: GENERAL: The patient is sitting up in a chair, eating her breakfast. She is alert, talkative, appears comfortable, and in no distress. VITAL SIGNS: Her temperature 97.8, pulse 72, respirations 22, O2 saturation 98 % on 3 L, and blood pressure 114/72. LUNGS: Clear with fair breath sounds. HEART: Regular rate. EXTREMITIES: No edema. The patient has a thick, elongated and crooked right great toenail. There is no surrounding redness. ASSESSMENT: 1. Severe generalized weakness. a. Progressed to where she was bed-confined, unable to walk or care for herself at the time of her admission on 05/23/2020. b. Improved. The patient is walking 12 to 15 feet at the most with a walker and assistance and transferring with minimal assistance. The patient is stable at this level as of 07/03. 2. Weight loss. a. Appetite much improved. b. Weight on admission 89, olimpia to 93, and last weight on 06/29 was 93. 3. Severe chronic obstructive pulmonary disease. a. Complicated by chronic hypoxic respiratory failure, requiring continuous supplemental O2. b. Has caused a gradual decline in her ADLs, where she requires assistance with all her ADLs as of 07/03. c. Stable as of 07/03. PLAN: Continue present care. Anticipate discharge on 07/07, that will give her a few more days of therapy and will give family time to prepare things at home. Daughter will be staying with her, and the patient will be going home under Hospice. Job ID: [id number] MTDD
[2020-07-03 12:42] VITALS: BMI 16.0
[2020-07-03] MEDS: Acetaminophen 325 MG TAB PO PRN (17:45)
[2020-07-03] MEDS: Mirtazapine 15 MG TAB PO SCH (20:39)
[2020-07-04] MEDS: Albuterol 200 PUFF (6.7GM INHALER) INH PRN ×4 (01:28→20:18)
[2020-07-04] MEDS: Mometasone/Formoterol 60 PUFF AER INH SCH ×2 (05:36→17:48)
[2020-07-04] MEDS: Clotrimazole 1% Cream 15 GM TUBE TOP SCH (08:04)
[2020-07-04] MEDS: Polyethylene Glycol 3350 17 GM Packet PO SCH (08:07)
[2020-07-04] MEDS: Enoxaparin Sodium 30 MG/0.3 ML SYRINGE SC SCH (08:07)
[2020-07-04] MEDS: Senokot S 8.6-50 MG TAB PO SCH ×2 (08:08→20:16)
[2020-07-04] MEDS: hydrALAZINE 25 MG TAB PO SCH ×2 (08:08→20:15)
[2020-07-04] MEDS: Amlodipine 5 MG TAB PO SCH (08:08)
[2020-07-04] MEDS: Ondansetron ODT 4 MG TAB PO PRN (09:33)
--- NOTE | 2020-07-04 10:01 | PRG ---
DATE OF SERVICE: 07/04/2020 SUBJECTIVE: The patient said she is feeling good this morning. She is eating her breakfast, usually syrup and waffles, which she usually eats very well. She has been working with physical therapy and yesterday walked up to 20 feet which is the longest distance she has walked here. She used a rolling walker and caregiver assist and is requiring minimum assistance with transfers. Arrangements have been made for her to go home under hospice. Tentative discharge date is . OBJECTIVE: GENERAL: The patient is alert, appears very comfortable, in no distress. She is sitting up in a chair. VITAL SIGNS: Show a temperature of 97.6, pulse 96, respirations 18, O2 saturation 95% on 3 L, and blood pressure 120/69. Weight is 90 pounds and 3 ounces. LUNGS: Clear with fair breath sounds. HEART: Regular rate. EXTREMITIES: No edema. ASSESSMENT: 1. Severe generalized weakness. a. Progressed to where she was bed confined, unable to walk or care for herself at the time of her admission on 05/23/2020. b. Improved. Yesterday, the patient walked 20 feet with a rolling walker and assistance and was transferring with minimal assistance. 2. Weight loss. a. Appetite much improved. b. Weight on admission, 89, it olimpia to 93, weight today was 90.3. 3. Severe chronic obstructive pulmonary disease. a. Complicated by chronic hypoxic respiratory failure requiring continuous supplemental O2. b. Has caused a gradual decline in her functional capabilities and requiring assistance with her ADLs as of 07/04. c. Stable as of 07/04. PLAN: Continue PT and OT. Arrangements are being prepared for the patient's discharge on 07/07. [facility] will picker and packer on her care. Job ID: [id number] MTDD
[2020-07-04] MEDS: Acetaminophen 325 MG TAB PO PRN (20:15)
[2020-07-04] MEDS: Mirtazapine 15 MG TAB PO SCH (20:16)
[2020-07-05] MEDS: Albuterol 200 PUFF (6.7GM INHALER) INH PRN ×3 (03:27→23:39)
[2020-07-05] MEDS: Mometasone/Formoterol 60 PUFF AER INH SCH ×2 (05:36→18:12)
[2020-07-05] MEDS: Clotrimazole 1% Cream 15 GM TUBE TOP SCH (07:49)
[2020-07-05] MEDS: Amlodipine 5 MG TAB PO SCH (07:50)
[2020-07-05] MEDS: hydrALAZINE 25 MG TAB PO SCH ×2 (07:50→20:08)
[2020-07-05] MEDS: Senokot S 8.6-50 MG TAB PO SCH ×2 (07:50→20:09)
[2020-07-05] MEDS: Polyethylene Glycol 3350 17 GM Packet PO SCH (07:51)
[2020-07-05] MEDS: Enoxaparin Sodium 30 MG/0.3 ML SYRINGE SC SCH (07:51)
[2020-07-05] MEDS: Acetaminophen 325 MG TAB PO PRN (20:08)
[2020-07-05] MEDS: Mirtazapine 15 MG TAB PO SCH (20:09)
[2020-07-06] MEDS: Mometasone/Formoterol 60 PUFF AER INH SCH ×2 (06:05→17:47)
[2020-07-06] MEDS: Albuterol 200 PUFF (6.7GM INHALER) INH PRN ×3 (07:45→21:25)
[2020-07-06] MEDS: hydrALAZINE 25 MG TAB PO SCH ×2 (08:06→21:17)
[2020-07-06] MEDS: Senokot S 8.6-50 MG TAB PO SCH ×2 (08:06→21:16)
[2020-07-06] MEDS: Enoxaparin Sodium 30 MG/0.3 ML SYRINGE SC SCH (08:06)
[2020-07-06] MEDS: Amlodipine 5 MG TAB PO SCH (08:07)
[2020-07-06] MEDS: Clotrimazole 1% Cream 15 GM TUBE TOP SCH (08:07)
[2020-07-06] MEDS: Polyethylene Glycol 3350 17 GM Packet PO SCH (08:07)
--- NOTE | 2020-07-06 09:28 | PRG ---
DATE OF SERVICE: 07/06/2020 SUBJECTIVE: The patient says she is feeling good today. Therapy has just come in to work with her and get her up into a chair. She is walking up to 20 feet, with just standby assistance and the use of a walker, transferring with just minimal assistance. She is excited about going home tomorrow. OBJECTIVE: GENERAL: The patient is alert, appears comfortable and in no distress. VITAL SIGNS: Her temperature has been 98.4, pulse 61, respirations 18, O2 saturation 99% on 3 L, and blood pressure 129/69. LUNGS: Clear. There are fair breath sounds. HEART: Regular rate. EXTREMITIES: No edema. ASSESSMENT: 1. Severe generalized weakness. a. Progressed to where she was bed confined, unable to walk or care for herself at the time of her admission on 05/23/2020. b. Improved. The patient walking up to 20 feet with a rolling walker and standby assistance and transferring with minimum assistance as of 07/06. 2. Weight loss. a. Appetite, much improved. b. Weight on admission 89. It has risen to 93 and last weight 90.3. 3. Severe chronic obstructive pulmonary disease. a. Complicated by chronic hypoxic respiratory failure, requiring continuous supplemental O2. b. Caused a gradual decline in her functional capabilities and requiring assistance with her ADLs as of 07/06. c. Stable as of 07/06. PLAN: Continue present care. Continue OT and PT. Plan on being discharged tomorrow. Her daughter will be staying with her to assist her and the patient has opted to go home under hospice. Job ID: [id number] [facility]
[2020-07-06] MEDS: Bisacodyl 10 MG SUPP PR PRN (12:51)
[2020-07-06] MEDS: Acetaminophen 325 MG TAB PO PRN (21:17)
[2020-07-06] MEDS: Mirtazapine 15 MG TAB PO SCH (21:17)
[2020-07-06 23:27] VITALS: TEMP 98.7
[2020-07-07] MEDS: Mometasone/Formoterol 60 PUFF AER INH SCH (05:53)
[2020-07-07] MEDS: Albuterol 200 PUFF (6.7GM INHALER) INH PRN (07:30)
[2020-07-07] MEDS: Enoxaparin Sodium 30 MG/0.3 ML SYRINGE SC SCH (08:44)
[2020-07-07] MEDS: Amlodipine 5 MG TAB PO SCH (08:45)
[2020-07-07] MEDS: Polyethylene Glycol 3350 17 GM Packet PO SCH (08:45)
[2020-07-07] MEDS: hydrALAZINE 25 MG TAB PO SCH (08:45)
[2020-07-07] MEDS: Senokot S 8.6-50 MG TAB PO SCH (08:46)
[2020-07-07] MEDS: Clotrimazole 1% Cream 15 GM TUBE TOP SCH (08:46)
[2020-07-07 08:47] VITALS: BP 110/63
--- NOTE | 2020-07-10 13:32 | DIS ---
DATE OF ADMISSION: 05/23/2020 DATE OF DISCHARGE: 07/07/2020 Admitted to [facility] on 05/23/2020 and discharged on 07/07/2020. FINAL DIAGNOSES: 1. Severe generalized weakness. a. Progressed to where she was bed confined and unable to walk or care for herself at the time of her admission on 05/23/2020 and complicated by a cellulitis of the sacrum with stage II decubitus. b. Improved. The patient walking up to 20 feet with a rolling walker and standby assistance and transferring with minimal assistance as of 07/07. 2. Weight loss. a. Appetite much improved. b. Weight on admission 89, discharge weight 91. 3. Severe chronic obstructive pulmonary disease. a. Complicated by chronic hypoxic respiratory failure requiring continuous supplemental O2. b. Has caused a gradual decline in her functional capabilities and now required assistance with her activities of daily living as of 07/07. c. Stable as of 07/07. 4. Hospitalized at [facility] from 05/20/2020 to 05/23/2020 for weight loss with malnutrition, weakness such she was unable to take care of herself and stage II decubitus of the sacrum with cellulitis. 5. Cellulitis of the sacral region, resolved. 6. Stage II decubitus of the sacrum, resolved. REASON FOR ADMISSION: The patient is a 75-year-old white female, who has a history of severe COPD, complicated by chronic hypoxic respiratory failure requiring continuous supplemental O2. She also has a history of hypertension. She lives by herself. Her condition had gradually declined primarily due to her severe COPD. She gradually became bed confined and was unable to take care of herself. She had developed an ulceration on her sacrum and a large area of redness. She was taken to the emergency room and admitted to [facility] from 2019 until 05/23/2020 for the weight loss, malnutrition and weakness that had progressed, leaving her bed confined, unable to take care of herself and with a stage II decubitus of the sacrum, complicated by cellulitis. She was treated with IV antibiotics and wound care and was placed on mirtazapine to help stimulate her appetite. The condition improved, the cellulitis was improving. She was transferred to [facility] on 05/23/2020 for continuation of wound care, completion of the antibiotics, physical therapy and occupational therapy. HOSPITAL COURSE: The patient was continued on antibiotics for the sacral cellulitis with cephalexin. This completely resolved and she completed the antibiotics. The stage II decubitus was cared for by frequent turning, local cleansing and application of a sacral Mepilex dressing with complete healing of the wound. Her severe COPD was managed with DuoNeb nebulizer treatments, Dulera was added. Her chronic hypoxic respiratory failure was managed with continuous supplemental O2 at 3 L. Her O2 saturation on 3 L was usually 98%. Her lungs had fair breath sounds and no wheezes or rhonchi. Her activities were limited by her severe COPD and often she appeared mildly dyspneic at rest, but did not complain of this, but activities were limited as a result of the dyspnea. She did work with Physical therapy and with physical therapy was slowly able to walk up to 20 feet with a rolling walker and standby assistance. She also was able to transfer with just minimum assistance. She was left on the mirtazapine to assist with her appetite. She was eating very well throughout her hospitalization. Her admission weight was 89 and her weight had increased to 91 pounds and 4 ounces. Her condition stabilized, it was such that it felt like she could be no longer requiring hospitalization. She does require help with all her ADLs and she requires a supervised living arrangement. She and her daughter discussed this. The daughter plans on staying with her to assist with her care. Also, they have elected for hospice to come in to help with her care. The patient's condition was stable such that she was able to be discharged to her home under her daughter's care and under hospice on 07/07/2020. DISPOSITION: DIET: Soft diet with chopped meats, supplements twice a day such as Boost. ACTIVITIES: Ambulate with the use of a walker. Requires supervised living arrangement. MEDICATIONS: 1. O2 at 3 L by nasal cannula, continuous. 2. Acetaminophen 325 mg 2 every 4 hours as needed. 3. DuoNeb by nebulizer b.i.d. and every 4 hours as needed. 4. Proventil inhaler 2 puffs every 4 hours as needed. 5. Dulera two puffs b.i.d. 6. Amlodipine 10 mg daily. 7. Dulcolax suppository 10 mg every other day, if no BM. 8. MiraLAX 17 g in 8 ounces of water daily. 9. Senokot-S 2 tablets b.i.d. 10. Ondansetron oral disintegrating tablets 4 mg every 4 hours as needed. 11. Mirtazapine 7.5 mg at bedtime. 12. Hydralazine 100 mg b.i.d. 13. Robitussin DM 10 mL every 6 hours as needed. FOLLOWUP: [facility] will merchandise pickup/receiving associate on her care. The patient will need to be rechecked by her primary care physician in 2 weeks, which can be done by telemedicine. CODE STATUS: During hospitalization patient was a full code. Job ID: [id number] MTDD
--- NOTE | 2020-07-11 02:36 | PQF ---
CLINICAL DOCUMENTATION CLARIFICATION FORM: Dear : Nirmal Ren Date / Time: 07/11/2020_: _ 227 Please exercise your independent, professional judgment in responding to the clarification form. Clinical indicators are provided on the bottom of this form for your review Please check appropriate box(es): [ ] Protein Calorie Malnutrition: [ ] Mild [ y ] Moderate [ ] Severe [ ] Other Malnutrition (please specify) __ [ ] Other diagnosis [ ] Unable to determine Physician Signature: Date/Time: For continuity of documentation, please document condition throughout progress notes and discharge summary. Thank You. To be completed by CDI/Coding staff for physician review: Present Clinical Indicators - Signs / Symptoms / Labs Results and Location in Medical Record [x ] Weight loss with malnutrition, weakness such she unable to walk DS, , Mikal Kinney MD w [x ] w Weight loss, appetite much improved w DS, 07/07, Mikal Kinney MD [x ] Her admission weight was 89 and her weight had increased to 91 pounds and 4 ounces DS, 07/07, Mikal Kinney MD [x ] Serum Total protein: 5.3L, Albumin: 3.0L Laboratory report, 05/24 [x ] BMI: 16.2 Vital signs report Present Risk Factors Results and Location in Medical Record [x ] Stage II decubitus of the sacrum DS, 07/07, Mikal Kinney MD [x ] Cellulitis of the sacral region DS, 07/07, Mikal Kinney MD Present Treatments Results and Location in Medical Record [x ] Dietary consult FNS assessment, 07/03 [x ] Intake oral fluids FNS assessment, 07/03 [x ] Mighty shake once/day FNS assessment, 07/03 CDS/Pony Roll Finisher Signature: Leona Alvarenga Phone #: [phone] Date/Time:_ 07/11/2020 Moderate Malnutrition (in acute illness) ? Energy Intake: <75% of estimated energy requirement for > 7 days ? Weight Loss: 1-2%/1 week; 5%/ 1 month; 7.5%/3 months ? Other: mild body fat loss; mild muscle mass loss; mild fluid accumulation; Severe Malnutrition (in acute illness) ? Energy Intake: ? 50% of estimated energy requirement for ? 5 days ? Weight Loss: >2%/1 week; >5%/1 month; >7.5%/3 months ? Other: moderate body fat loss; moderate muscle mass loss; moderate- severe fluid accumulation; measurably reduced jewel inspector strength Moderate Malnutrition (in chronic illness) ? Energy Intake: <75% of estimated energy requirement for ?1 month ? Weight Loss: 5%/1 month; 7.5%/3 months; 10%/6 months; 20%/1 year ? Other: mild body fat loss; mild muscle mass loss; mild fluid accumulation Severe Malnutrition (in chronic illness) ? Energy Intake: ?75% of estimated energy requirement for ?1 month ? Weight Loss: >5%/1 month; >7.5%/3 months; >10%/6 months; >20%/1 year ? Other: severe body fat loss; severe muscle mass loss; severe fluid accumulation; measurably reduced jewel inspector strength This is a permanent part of the Medical Record MTDD
== END 2020-07-07 14:55 | disposition home or self-care (01) | DRG 603 ==
LOC: MADMS 17:18 → UNDOADMIN 17:18
PROVIDERS: ADMIT Family Medicine; ATTEND Family Medicine
DX: L03.312 Cellulitis of back [any part except buttock and flank] (principal); E44.0 Moderate protein-calorie malnutrition; J96.11 Chronic respiratory failure with hypoxia; Z68.1 Body mass index [BMI] 19.9 or less, adult; R63.4 Abnormal weight loss; J44.9 Chronic obstructive pulmonary disease, unspecified; Z20.828 Contact with and (suspected) exposure to other viral communicable diseases; L89.152 Pressure ulcer of sacral region, stage 2; K59.00 Constipation, unspecified; I10 Essential (primary) hypertension; E83.39 Other disorders of phosphorus metabolism; Z74.01 Bed confinement status
CPT/HCPCS: 36415; 80048; 80053; 85025; 94640; 94664; J1650; J7620; Q0162